=== PATIENT | male | born 1955 | race Caucasian/White ===

== ENCOUNTER 2019-12-26 05:59 | Day surgery (SDC) | payer MEDICARE ==
[2019-12-26 06:30] VITALS: O2SAT 98
[2019-12-26] MEDS ORDERED: Lactated Ringers 1,000 ML IV SCH (06:30)
[2019-12-26] MEDS ORDERED: DIPRIVAN 200 MG/20 ML IV ONE (08:02)
[2019-12-26 08:50] VITALS: PULSE 50
--- NOTE | 2019-12-26 09:08 | OP ---
SURGERY DATE/TIME: 12/26/2019 08 PREOPERATIVE DIAGNOSIS: Left upper quadrant abdominal pain. POSTOPERATIVE DIAGNOSIS: Moderate duodenitis. PROCEDURE: Esophagogastroduodenoscopy with cold forceps biopsy. SURGEON: Dr. Melendez. ANESTHESIA: Medications were given by the anesthesia department. BRIEF HISTORY: The patient is a 64 year old white male patient who has been complaining of left upper quadrant abdominal pain. The patient is not taking any NSAID's although he is also not on any stomach medication. He has aggravation of the symptoms with spicy foods. This patient was described risks of the procedure including the risk of perforation, phlebitis, untoward reaction to medication, bleeding and missed lesions. The patient verbalized his understanding and desired to have the procedure performed. DESCRIPTION OF PROCEDURE: The patient was given the medications by the anesthesia department. He had continuous pulse oximetry, ECG monitoring, intermittent blood pressure monitoring and tidal CO2 monitoring during the examination. He was placed in the left lateral decubitus position. A bite block was placed and the flexible Olympus gastroscope was used to intubate the oropharynx. A view of the larynx was obtained and this was normal. The scope was easily passed in the esophagus which appeared to be normal throughout its length. The scope was passed into the stomach where normal gastric rugal folds were seen and these distended nicely with insufflation of air. The scope was passed along the greater curvature of the stomach to the antrum. The pylorus was encountered and intubated. Duodenum inspected and found to be erythematous throughout. No ulcerations or erosions however were noted. The scope is withdrawn towards the stomach. A retroflex view was obtained of the lesser curvature, fundus and cardia regions of the stomach. There was noted lack of a hiatal hernia. Biopsies were obtained from the gastric antrum to rule out the presence of Helicobacter pylori-type organisms. The scope was then removed from the patient who tolerated the procedure well and was sent back to outpatient recovery in good condition.
[2019-12-26 09:10] VITALS: BP 124/55
== END 2019-12-26 09:15 | disposition home or self-care (01) ==
LOC: SDC 05:59
PROVIDERS: ATTEND Family Medicine
DX: K29.80 Duodenitis without bleeding (principal)
CPT/HCPCS: J2704

== ENCOUNTER 2021-03-05 01:39 | Emergency (ER) | payer MEDICARE ==
[2012-05-06 08:19] VITALS: BP 98/55
--- NOTE | 2021-03-05 02:21 | ERPHSYRPT ---
- History of Present Illness Source: patient Patient Subjective Stated Complaint: "I hit my leg on the table." Triage Nursing Assessment: patient has 3mm laceration to the right lower extremity. Bleeding controlled with quick clot placed by the patient's . No reported blood thinners. Physician History: 65 yo wm w bleeding varicosity R pre-tibial area. Pt bumped his leg on his bed. He is not on a anticoagulant or ASA/plavix. Pt w good hemostasis upon arrival. Method of Injury: direct blow Occurred: just prior to arrival Severity of Pain-Max: mild Severity of Pain-Current: none Lower Extremities Pain: leg: right Modifying Factors: Improves With: nothing Allergies/Adverse Reactions: No Known Drug Allergies Allergy (Verified 03/05/21 01:55) Home Medications: Levothyroxine Sodium 50 mcg PO DAILY 11/02/15 [History] Hx Tetanus, Diphtheria Vaccination/Date Given: Yes Hx Influenza Vaccination/Date Given: Yes Hx Pneumococcal Vaccination/Date Given: Yes Travel Risk - International Travel Have you traveled outside of the country in past 3 weeks: No - Coronavirus Screening Are you exhibiting any of the following symptoms?: No Symptoms: Shortness of Breath - Vaccine Status Have you recieved a Covid-19 vaccination: (unknown) Relations Specialist: Unknown - Vaccination Dates Dates if Unknown: unknown - Review of Systems Constitutional: No Symptoms Eyes: No Symptoms Ears, Nose, & Throat: No Symptoms Respiratory: No Symptoms Cardiac: No Symptoms Abdominal/Gastrointestinal: No Symptoms Genitourinary Symptoms: No Symptoms Skin: No Symptoms Neurological: No Symptoms Psychological: No Symptoms Endocrine: No Symptoms Hematologic/Lymphatic: No Symptoms Immunological/Allergic: No Symptoms - Past Medical History Pertinent Past Medical History: Yes Neurological History: No Pertinent History ENT History: No Pertinent History Cardiac History: No Pertinent History Respiratory History: No Pertinent History Endocrine Medical History: Hyperthyroidism Musculoskeletal History: No Pertinent History GI Medical History: No Pertinent History History: No Pertinent History Psycho-Social History: No Pertinent History Male Reproductive Disorders: No Pertinent History Other Medical History: excema, CA lower lip - Past Surgical History Past Surgical History: No Neuro Surgical History: No Pertinent History Cardiac: No Pertinent History Respiratory: No Pertinent History Gastrointestinal: No Pertinent History Genitourinary: No Pertinent History Musculoskeletal: No Pertinent History, Orthopedic Surgery Male Surgical History: No Pertinent History Other Surgical History: T&A as a child,rt foot, colonoscopy - Social History Smoking Status: Never smoker Exposure to second hand smoke: No Drug Use: none Patient Lives Alone: No Significant Family History: no pertinent family hx - Nursing Vital Signs Nursing Vital Signs: Initial Vital Signs Pulse Rate 79 03/05/21 01:40 Respiratory Rate 16 03/05/21 01:40 Blood Pressure 113/75 03/05/21 01:40 O2 Sat by Pulse Oximetry 98 03/05/21 01:40 Pain Scale Pain Intensity 0 WNL - Physical Exam General Appearance: no apparent distress Eyes, Ears, Nose, Throat Exam: normal ENT inspection, TMs normal, pharynx normal Neck Exam: normal inspection, non-tender, supple Cardiovascular/Respiratory Exam: normal breath sounds, heart sounds normal Gastrointestinal/Abdominal Exam: non-tender, soft Back Exam: normal inspection, normal range of motion Hips Exam: bilateral: non-tender, normal inspection, normal range of motion Legs Exam: right leg: other (R pre-tibial abrasion w good hemostasis), bilateral leg: non-tender, normal inspection, normal range of motion Knees Exam: bilateral knee: non-tender, normal inspection, normal range of motion Ankle Exam: bilateral ankle: non-tender, normal inspection, normal range of motion, no evidence of injury Foot Exam: bilateral foot: non-tender, normal inspection, normal range of motion Neuro/Tendon Exam: normal sensation, normal motor functions, normal tendon functions, responds to pain Mental Status Exam: alert, oriented x 3, cooperative Skin Exam: normal color, warm, dry SpO2 Interpretation: normal SpO2: 98 O2 Delivery: Room Air - Course Nursing assessment & vital signs reviewed: Yes - Progress Progress Note: 03/05/21 02:21 No active bleeding in ER Counseled pt/family regarding: diagnosis, need for follow-up - Departure Departure Disposition: Home Clinical Impression: Bleeding from varicose veins of right lower extremity Condition: Stable Critical Care Time: No Referrals: ZECHARIAH WILDER [Primary Care Provider] - Follow up/PCP as directed Instructions: Wound Care (DC) Additional Instructions: If bleeding restarts, hold pressure for 15 minutes before coming to ER Avoid aspirin/Motrin for 1 day Return to ER for uncontrolled bleeding
== END 2021-03-05 02:34 | disposition home or self-care (01) ==
LOC: ED 01:39
DX: I83.891 Varicose veins of right lower extremity with other complications (principal); W22.8XXA Striking against or struck by other objects, initial encounter; Y92.003 Bedroom of unspecified non-institutional (private) residence as the place of occurrence of the external cause
CPT/HCPCS: 99283

== ENCOUNTER 2021-11-30 10:51 | Day surgery (SDC) | payer MEDICARE ==
[2012-05-06 08:19] VITALS: BP 98/55
[2021-11-30] MEDS ORDERED: Depo-Medrol 40 MG/ML IM ONE (10:52)
[2021-11-30] MEDS ORDERED: Sodium Chloride 0.9(Preservative Free) 10 ML IJ ONE (10:52)
[2021-11-30] MEDS ORDERED: DIPRIVAN 200 MG/20 ML IV ONE (12:11)
[2021-11-30] MEDS ORDERED: Lactated Ringers 1,000 ML IV ONE (12:28)
--- NOTE | 2021-11-30 14:03 | XRAY ---
Indication: Right L4-S1 transforaminal GERARDO. Intraoperative fluoroscopy provided for 22 seconds. 4 digital spot image submitted for interpretation demonstrates posterior needle tips projecting over the expected right L4 and L5 nerve roots. Small amount of contrast injected for needle tip placement. Correlate with intraoperative findings/report.
--- NOTE | 2021-11-30 14:04 | XRAY ---
22 seconds fluoroscopy time in surgery for right L4-S1 transforaminal GERARDO.
== END 2021-11-30 12:35 | disposition home or self-care (01) ==
LOC: SDC-PAIN 10:51
PROVIDERS: ATTEND Psychiatry & Neurology Pain Medicine
DX: M54.16 Radiculopathy, lumbar region (principal); Z79.899 Other long term (current) drug therapy
CPT/HCPCS: 64483; 64484; 72100; 77002; J1030; J2704; Q9966

== ENCOUNTER 2022-01-11 13:42 | Day surgery (SDC) | payer MEDICARE ==
[2012-05-06 08:19] VITALS: BP 98/55
[2022-01-11] MEDS ORDERED: Decadron 4 MG INJ IV ONE (13:43)
[2022-01-11] MEDS ORDERED: Depo-Medrol 40 MG/ML IM ONE (13:43)
[2022-01-11] MEDS ORDERED: Sodium Chloride 0.9(Preservative Free) 10 ML IJ ONE (13:43)
[2022-01-11] MEDS ORDERED: LIDOCAINE HCL 1% 50 MG/5 ML VL PF IJ ONE (13:43)
[2022-01-11] MEDS ORDERED: Lactated Ringers 1,000 ML IV ONE (14:35)
[2022-01-11] MEDS ORDERED: DIPRIVAN 200 MG/20 ML IV ONE (15:20)
--- NOTE | 2022-01-11 18:34 | XRAY ---
50 seconds fluoroscopy time in surgery for right L4-S1 transforaminal GERARDO and injection of the right piriformis muscle.
== END 2022-01-11 15:32 | disposition home or self-care (01) ==
LOC: SDC-PAIN 13:42
PROVIDERS: ATTEND Psychiatry & Neurology Pain Medicine
DX: M54.16 Radiculopathy, lumbar region (principal); M79.18 Myalgia, other site; Z79.899 Other long term (current) drug therapy
CPT/HCPCS: 20552; 64483; 64484; 72100; 77002; 77003; J1030; J1100; J2001; J2704; Q9966

== ENCOUNTER 2022-01-16 06:03 | Day surgery (SDC) | payer MEDICARE ==
[2022-01-16 06:28] VITALS: O2SAT 99
[2022-01-16] MEDS ORDERED: Lactated Ringers 1,000 ML IV SCH (06:30)
[2022-01-16] MEDS ORDERED: DIPRIVAN 200 MG/20 ML IV ONE (07:02)
[2022-01-16 08:14] VITALS: BP 128/84; PULSE 45
--- NOTE | 2022-01-16 12:54 | OP ---
SURGERY DATE/TIME: 01/16/2022 0702 PREOPERATIVE DIAGNOSIS: Screening exam. POSTOPERATIVE DIAGNOSIS: Small sigmoid colon polyp. PROCEDURE: Colonoscopy with cold forceps biopsy. SURGEON: Dr. Quintin Melendez. ANESTHESIA: MAC. Medications given by anesthesia department. HISTORY: The patient is a 66-year-old white male patient who presents for colonoscopic evaluation. The patient was appraised of the risks of the procedure including the risk of perforation, phlebitis, untoward reaction to medication, bleeding and missed lesions. The patient verbalized his understanding and desired to have the procedure performed. DESCRIPTION OF PROCEDURE: The patient was given the medications by the anesthesia department. He had continuous pulse oximetry, ECG monitoring, intermittent blood pressure monitoring during the examination. He was placed in the left lateral decubitus position. A digital rectal examination was performed and revealed normal anal sphincter tone, no masses and normal prostate. The flexible Olympus pediatric colonoscope was used to intubate the rectum. A view of the colon was developed sequentially to the cecum. Upon insertion and withdrawal was noted a small polyp in the sigmoid colon this is biopsied using cold biopsy forceps. No other mucosal lesions were encountered. The scope was removed from the patient who tolerated the procedure well and was sent back to OP recovery in good condition. The prep was noted to be fair to poor.
== END 2022-01-16 08:22 | disposition home or self-care (01) ==
LOC: SDC 06:03
PROVIDERS: ATTEND Family Medicine
DX: Z12.11 Encounter for screening for malignant neoplasm of colon (principal); D12.5 Benign neoplasm of sigmoid colon
CPT/HCPCS: J2704

== ENCOUNTER 2022-03-03 06:27 | Day surgery (SDC) | payer MEDICARE ==
[2022-03-03] MEDS ORDERED: XYLOCAINE 1% HCL 20 ML MDV ONE (06:30)
[2022-03-03] MEDS ORDERED: Marcaine Mpf 0.5% Vial 30 Ml ONE (06:30)
[2022-03-03] MEDS ORDERED: Lactated Ringers 1,000 ML IV SCH (07:30)
[2022-03-03] MEDS ORDERED: Lactated Ringers 1,000 ML IV ONE ×2 (07:32→08:34)
[2022-03-03] MEDS ORDERED: Versed 2 MG/2 ML Injection ONE ×2 (08:16→08:57)
[2022-03-03] MEDS ORDERED: SUBLIMAZE 100 MCG/2 ML ONE ×2 (08:16→09:43)
[2022-03-03] MEDS ORDERED: DIPRIVAN 200 MG/20 ML IV ONE ×3 (08:16→08:59)
[2022-03-03] MEDS ORDERED: KEFZOL 1 GM ONE (08:21)
[2022-03-03] MEDS ORDERED: Kenalog-40 ONE (08:35)
[2022-03-03] MEDS ORDERED: Xylocaine 1% Vial 30 ML PF IJ ONE (08:35)
[2022-03-03] MEDS ORDERED: Epinephrine Preservative Free 1 MG/ML ONE (09:00)
[2022-03-03 09:48] VITALS: O2SAT 95
[2022-03-03 10:14] VITALS: BP 114/78; PULSE 46
[2022-03-03] MEDS ORDERED: Ephedrine Sulfate 50 MG/ML ONE (10:14)
[2022-03-03] MEDS ORDERED: Zofran 4 MG/2 ML VIAL ONE (10:31)
[2022-03-03] MEDS ORDERED: TORAdol 30 mg Injection ONE (10:31)
[2022-03-03] MEDS ORDERED: Zemuron 100 MG/10 ML ONE (10:31)
[2022-03-03] MEDS ORDERED: Decadron 4 MG INJ ONE ×2 (10:31→11:08)
[2022-03-03] MEDS ORDERED: BRIDION 200MG/2ML IV ONE (10:31)
[2022-03-03] MEDS ORDERED: PHENYLEPHRINE HCL ONE (10:32)
[2022-03-03] MEDS ORDERED: Amidate 20 MG/10 ML IV ONE (10:32)
[2022-03-03] MEDS ORDERED: Marcaine 0.5%/Epinephrine 10 ML ONE (11:08)
[2022-03-03] MEDS ORDERED: Xylocaine-Mpf 2% 5 Ml Vial ONE (11:09)
[2022-03-03] MEDS ORDERED: DEXMEDETOMIDINE 80 MCG/20ML-NS IV ONE (11:11)
--- NOTE | 2022-03-03 11:30 | OP ---
SURGERY DATE/TIME: 03/03/2022 0817 PREOPERATIVE DIAGNOSES: 1) Osteomyelitis second toe left foot. 2) Chronic ulceration left foot. 3) Rfjqulk-Oofqs-Exwwu left foot. 4) Equinus. 5) Plantar fasciitis left foot. POSTOPERATIVE DIAGNOSES: 1) Osteomyelitis second toe left foot. 2) Chronic ulceration left foot. 3) Yjsqoho-Pphvc-Lqmet left foot. 4) Equinus. 5) Plantar fasciitis left foot. PROCEDURES: 1) Partial amputation with diaphysectomy of the proximal phalanx second digit left foot. 2) Plantar fascial injection left foot. SURGEON: Eliecer Dyer DPM. MANAGER MENTAL HEALTH: None. ANESTHESIA: Monitored anesthesia care plus a local block preoperatively. ESTIMATED BLOOD LOSS: Less than 3 cc. MATERIALS: 4-0 Monocryl, 3-0 Nylon. INJECTABLES: A total of 8 cc of 1% lidocaine plain, 8 cc of 0.5% bupivacaine plain and 1 cc of Kenalog injected in a digital block to the second digit and in a plantar fascial injection respectively. INDICATION FOR SURGERY: Ricardo is a very pleasant 66-year-old male who is well known to my service for an ulceration to the distal tip of second digit. The patient over the years has had chronic infections to the distal tip of the second digit. The patient does have Jwdnahm-[id number]-Atfwb with significant contractures and recent infection was deemed to have some disruptive changes to the bone at the distal tip of the second digit from the previous visit. The ulceration went down to bone. Discussion with the patient in regards to treatment revealed that the patient would like to deal with this as quickly as possible so that he can proceed with correcting the remaining digits. The option was given to provide six to eight weeks of IV antibiotics, bone debridement at the distal tip of the toe. However, there are no guarantees as to the outcome and we could end up with an amputation of this digit anyway. At this time, the patient opted to proceed electively with a partial amputation of the toe. The patient understands all risks, complications and benefits of the procedure including but not limited to infection, hematoma, seroma, possibility of delayed skin healing, possibility of nonresolution of the issue and possibility of need for further surgery at a later date. He understands all of this and wishes to proceed. DESCRIPTION OF PROCEDURE AND FINDINGS: The patient is brought into the OR and placed and placed on the OR table in the supine position. At this time adequate monitored anesthesia care was administered until the patient was sedated. A preoperative block was performed in aseptic technique to the second digit consisting of 10 cc of a 1:1 mixture of 1% lidocaine plain and 0.5% bupivacaine plain. At this time the left foot was prepped and draped in the typical sterile fashion. At this time a fish mouth incision was made over the base of the proximal phalanx of the second digit. The incision was carried down to the level of bone utilizing a 15 blade. At this time the proximal interphalangeal joint was disarticulated and then a sagittal saw was utilized to remove a portion of the proximal phalanx. At this time, copious amounts of sterile saline were utilized to flush the surgical site. The site was then coapted utilizing 4-0 Monocryl and 3-0 Nylon in a simple buried-type fashion as well as a horizontal mattress-type fashion respectively. At this time, injection was provided to the level of the plantar fascia. The left plantar fascial layer consisting of 3 cc of 1% lidocaine, 3 cc of 0.5% bupivacaine plain and 1 cc of Kenalog. Following this a dressing consisting of Betadine, Adaptic, 4x4, Kerlix and LOS was applied to the left lower extremity. The patient then was reversed from anesthesia and returned to the postoperative anesthesia care unit with vital signs stable and vascular status intact. The patient handled the anesthesia as well as the procedure without significant complication. Postoperative orders as indicated in the patient's discharge chart.
== END 2022-03-03 10:09 | disposition home or self-care (01) ==
LOC: SDC 06:27
PROVIDERS: ATTEND Podiatrist Foot & Ankle Surgery
DX: M86.172 Other acute osteomyelitis, left ankle and foot (principal); L97.529 Non-pressure chronic ulcer of other part of left foot with unspecified severity; G60.0 Hereditary motor and sensory neuropathy; M21.6X2 Other acquired deformities of left foot; M72.2 Plantar fascial fibromatosis
CPT/HCPCS: J0171; J0690; J1100; J1885; J2001; J2250; J2370; J2405; J2704; J3010; J3301

== ENCOUNTER 2023-03-03 17:22 | Emergency (ER) | payer MEDICARE ==
[2023-03-03 18:06] VITALS: TEMP 97.9
[2023-03-03] MEDS ORDERED: MORPHINE SULFATE 4 MG INJ IV ONE (18:07)
--- NOTE | 2023-03-03 18:15 | ERPHSYRPT ---
- History of Present Illness Source: patient Exam Limitations: no limitations Patient Subjective Stated Complaint: pt reports falling off a ladder approx 5ft onto the ground and landing on his back, pt reports mid back pain and painful inspiration, pt denies LOC or any other injuries at this time. Triage Nursing Assessment: pt is aox3, pupils perrl, afebrile, resps easy and non labored, lung sounds are clear, radial pulses strong and equal, cap refill < 3 seconds, pt abd soft non tender, pt skin pink warm dry. pt with 2 long superficial abrasions to his back. Physician History: 67 years old male with no past medical history, presented to the emergency room complaining of mid back pain and pain to both sides of the chest. The patient states that he fell off a 5 feet ladder and landed on dirt on his back. This happened at around 2:30 PM almost 3 hours prior to arrival to the emergency room. He is denying any other injuries no head trauma or loss of consciousness, no neck pain no pain to his upper or lower extremities. The patient is ambulatory. He took couple of ibuprofens without much relief. He is rating his pain at 9 out of 10. The patient states that his back pain and chest pain is worse with deep breaths but he is denying any shortness of breath. No abdominal pain nausea or vomiting. Allergies/Adverse Reactions: No Known Drug Allergies Allergy (Verified 03/03/23 18:06) Home Medications: Levothyroxine Sodium 50 Mcg [Synthroid 50 Mcg] 50 mcg PO DAILY 02/07/22 [History] Pregabalin 75 mg PO BID 03/03/23 [History] Upadacitinib [Rinvoq] 15 mg PO DAILY 03/03/23 [History] Hx Tetanus, Diphtheria Vaccination/Date Given: (unk) Hx Influenza Vaccination/Date Given: No Hx Pneumococcal Vaccination/Date Given: No Immunizations Up to Date: No Travel Risk - International Travel Have you traveled outside of the country in past 3 weeks: No - Coronavirus Screening Are you exhibiting any of the following symptoms?: No Close contact with a COVID-19 positive Pt in past 14-21 Days: No - Vaccine Status Have you recieved a Covid-19 vaccination: Yes (unknown) Comb Setter: Moderna - Vaccination Dates Date of 2cond Vaccination (if applicable): 2020 Dates if Unknown: unknown - Review of Systems Constitutional: No Symptoms Eyes: No Symptoms Ears, Nose, & Throat: No Symptoms Respiratory: No Cough, No Dyspnea Cardiac: No Chest Pain, No Edema, No Syncope Abdominal/Gastrointestinal: No Abdominal Pain, No Nausea, No Vomiting, No Diarrhea Genitourinary Symptoms: No Dysuria Musculoskeletal: Back Pain, Fall, Other (Bilateral chest/rib pain.), No Neck Pain Skin: No Rash Neurological: No Dizziness, No Focal Weakness, No Sensory Changes Psychological: No Symptoms Endocrine: No Symptoms All Other Systems: Reviewed and Negative - Past Medical History Pertinent Past Medical History: Yes Neurological History: No Pertinent History ENT History: No Pertinent History Cardiac History: No Pertinent History Respiratory History: No Pertinent History Endocrine Medical History: Hyperthyroidism Musculoskeletal History: No Pertinent History GI Medical History: No Pertinent History History: No Pertinent History Psycho-Social History: No Pertinent History Male Reproductive Disorders: No Pertinent History Other Medical History: ezcema, CA lower lip,ca left ear - Past Surgical History Past Surgical History: Yes Neuro Surgical History: No Pertinent History Cardiac: No Pertinent History Respiratory: No Pertinent History Gastrointestinal: No Pertinent History Genitourinary: No Pertinent History Musculoskeletal: No Pertinent History, Orthopedic Surgery Male Surgical History: No Pertinent History Other Surgical History: T&A as a child,rt foot, colonoscopy, nose surgery - Social History Smoking Status: Never smoker Exposure to second hand smoke: Yes Drug Use: none Patient Lives Alone: No Significant Family History: no pertinent family hx Physical Exam - Nursing Vital Signs Nursing Vital Signs: Initial Vital Signs Temperature 97.9 F 03/03/23 17:52 Pulse Rate 68 03/03/23 17:52 Respiratory Rate 20 03/03/23 17:52 Blood Pressure 121/70 03/03/23 17:52 O2 Sat by Pulse Oximetry 97 03/03/23 17:52 Pain Scale Pain Intensity 4 - Alexandrea Coma Score Best Eye Response (Alexandrea): (4) open spontaneously Best Verbal Response (Alexandrea): (5) oriented Best Motor Response (Vevay): (6) obeys commands Alexandrea Total: 15 - Physical Exam General Appearance: no apparent distress Head Injury: no evidence of injury ENT Exam: airway nml, nml ext.inspection, No evidence of ENT injury Neck Exam: supple, trachea midline, normal inspection, c-collar in place, No tenderness Respiratory/Chest Exam: chest tenderness, normal breath sounds, rales, other (Bilateral chest wall tenderness), No respiratory distress, No ecchymosis, No crepitus Cardiovascular Exam: normal heart sounds, regular rate/rhythm, normal peripheral pulses, No murmur, No edema, No JVD Gastrointestinal Exam: soft, No tenderness, No distention, No guarding Genitalia Exam: normal genital exam Rectal Exam: deferred Back Exam: normal inspection, normal range of motion, vertebral tenderness, other (Midthoracic and parathoracic tenderness, no bruising swelling or deformities. Tenderness over the right mid posterior ribs) Extremity Exam: normal inspection, normal range of motion, capillary refill <3 sec, pelvis stable, No tenderness Neurologic Exam: alert, oriented x 3, cooperative, lawn caretaker II-XII nml as tested, sensation nml, No motor deficits Skin Exam: normal color, warm, dry SpO2 Interpretation: normal SpO2: 97 - Course Nursing assessment & vital signs reviewed: Yes Ordered Tests: Active Orders 24 hr Category Date Time Status ABDOMEN AND PELVIS W CONTRAST [CT] Stat Exams 03/03/23 18:08 Completed CHEST WITH CONTRAST [CT] Stat Exams 03/03/23 18:08 Completed CBC W DIFF Stat Lab 03/03/23 18:20 Completed CMP Stat Lab 03/03/23 18:20 Completed UA W/RFX UR CULTURE Stat Lab 03/03/23 20:20 Completed Medication Summary Discontinued Medications Generic Name Dose Route Start Last Admin Trade Name Freq PRN Reason Stop Dose Admin Ketorolac Tromethamine 30 mg 03/03/23 20:28 03/03/23 20:33 Ketorolac Tromethamine 30 Mg/Ml Inj IV 03/03/23 20:29 30 mg STAT ONE Administration Ketorolac Tromethamine Confirm 03/03/23 20:30 Ketorolac Tromethamine 30 Mg/Ml Inj Administered 03/03/23 20:31 Dose 30 mg .ROUTE .STK-MED ONE Morphine Sulfate 4 mg 03/03/23 18:07 03/03/23 18:26 Morphine Sulfate 4 Mg/Ml Injection IV 03/03/23 18:08 4 mg STAT ONE Administration Morphine Sulfate Confirm 03/03/23 18:25 Morphine Sulfate 4 Mg/Ml Injection Administered 03/03/23 18:26 Dose 4 mg .ROUTE .STK-MED ONE Orphenadrine Citrate 60 mg 03/03/23 20:28 03/03/23 20:33 Orphenadrine Citrate 60 Mg/2 Ml Vial IV 03/03/23 20:29 60 mg STAT ONE Administration Orphenadrine Citrate Confirm 03/03/23 20:30 Orphenadrine Citrate 60 Mg/2 Ml Vial Administered 03/03/23 20:31 Dose 60 mg .ROUTE .STK-MED ONE Lab/Rad Data: Laboratory Result Diagrams 03/03/23 18:20 03/03/23 18:20 Laboratory Results 03/03/23 03/03/23 03/03/23 Range/Units 20:20 18:20 18:20 WBC 7.4 (4.0-10.5) x10^3/uL RBC 4.35 (4.1-5.6) x10^6/uL Hgb 14.3 (12.5-18.0) g/dL Hct 42.6 (42-50) % MCV 97.9 (78-100) fL MCH 32.9 H (26-32) pg MCHC 33.6 (32-36) g/dL RDW 13.5 (11.5-14.0) % Plt Count 258 (150-450) x10^3/uL MPV 9.5 (7.5-11.0) fL Gran % 81.2 H (36.0-66.0) % Immature Gran % (Auto) 0.3 (0.00-0.4) % Nucleat RBC Rel Count 0.0 (0.00-0.1) % Eos # (Auto) 0.06 (0-0.5) x10^3/uL Immature Gran # (Auto) 0.02 (0.00-0.03) x10^3u/L Absolute Lymphs (auto) 0.59 L (1.0-4.6) x10^3/uL Absolute Monos (auto) 0.68 (0.0-1.3) x10^3/uL Absolute Nucleated RBC 0.00 (0.00-0.01) x10^3u/L Lymphocytes % 8.0 L (24.0-44.0) % Monocytes % 9.3 (0.0-12.0) % Eosinophils % 0.8 (0.00-5.0) % Basophils % 0.4 (0.0-0.4) % Absolute Granulocytes 5.97 (1.4-6.9) x10^3/uL Basophils # 0.03 (0-0.4) x10^3/uL Sodium 136 L (137-145) mmol/L Potassium 4.4 (3.5-5.1) mmol/L Chloride 103 (98-107) mmol/L Carbon Dioxide 23 (22-30) mmol/L Anion Gap 15.2 H (5-15) MEQ/L BUN 18 (9-20) mg/dL Creatinine 1.02 (0.66-1.25) mg/dL Estimated GFR 79.6 ML/MIN Glucose 91 (74-106) mg/dL Calcium 9.7 (8.4-10.2) mg/dL Total Bilirubin 0.70 (0.2-1.3) mg/dL AST 38 (17-59) U/L ALT 32 (0-50) U/L Alkaline Phosphatase 67 (38-126) U/L Serum Total Protein 7.4 (6.3-8.2) g/dL Albumin 4.6 (3.5-5.0) g/dL Urine Color Yellow (Yellow) Urine Appearance Clear (Clear) Urine pH 7.0 (4.6-8.0) Ur Specific Hilton 1.025 (1.005-1.030) Urine Protein Negative (Negative) Urine Glucose (UA) Negative (Negative) mg/dL Urine Ketones Trace A (Negative) Urine Blood Negative (Negative) Urine Nitrite Negative (Negative) Urine Bilirubin Negative (Negative) Urine Urobilinogen 0.2 (0.2) mg/dL Ur Leukocyte Esterase Negative (Negative) U Hyaline Cast (Auto) NONE SEEN (0-2) /LPF Urine Microscopic RBC 0-2 (0-5) /HPF Urine Microscopic WBC 0-2 (0-5) /HPF Ur Epithelial Cells None Seen (None Seen) /HPF Urine Bacteria None Seen (None Seen) /HPF Urine Culture Reflexed NO (NO) Slides for Path Review YES - Progress Progress: improved Progress Note: 03/03/23 18:13 67 years old male with no past medical history, presented to the emergency room complaining of mid back pain and pain to both sides of the chest. The patient states that he fell off a 5 feet ladder and landed on dirt on his back. This happened at around 2:30 PM almost 3 hours prior to arrival to the emergency room. He is denying any other injuries no head trauma or loss of consciousness, no neck pain no pain to his upper or lower extremities. The patient is ambulatory. He took couple of ibuprofens without much relief. He is rating his pain at 9 out of 10. The patient states that his back pain and chest pain is worse with deep breaths but he is denying any shortness of breath. No abdominal pain nausea or vomiting. Emergency room course and medical decision making. The patient is rating his pain as severe, 9 out of 10. He will be given morphine sulfate 4 mg IV. We will check CBC, CMP, UA, CT scan of the chest abdomen and pelvis. 03/03/23 20:30 The patient is feeling slightly better after the IV morphine. His CT scan of the chest revealed no pneumothorax no definite evidence of acute fracture. Small osteolytic lesion of T11 vertebral body, and a focal sclerotic left fifth rib for eval evaluation recommended. CT scan of the abdomen revealed 1.3 cm hypodense nodule segment of the left lower lobe consider cyst versus hemangioma. Renal cortical cysts. No acute osseous finding. The patient will be given Toradol 30 mg IV, Norflex 60 mg IV for the pain. 03/03/23 21:52 The patient is feeling better stating that his pain is down to 4 out of 10. He be discharged home accompanied by his . For the pain he will be prescribed ibuprofen 800 mg 3 times a day as needed, cyclobenzaprine 10 mg 3 times a day as needed. He needs to rest, avoid any strenuous activities. Follow-up with his family physician in 2 to 3 days. Follow-up as needed for any worsening symptoms. Medical Desision Making - Discussion of managment Reviewed:: Test results - Departure Clinical Impression: Back pain due to injury, Contusion of ribs Condition: Stable Critical Care Time: No Referrals: ZECHARIAH WILDER [Primary Care Provider] - Follow up/PCP as directed Instructions: Contusion (DC), Upper Back Pain ED Additional Instructions: Follow-up with your family physician in 2 to 3 days. Follow-up as needed for any worsening symptoms. Prescriptions: Cyclobenzaprine HCl 10 mg [Cyclobenzaprine 10 MG] 10 mg PO TID PRN #10 tablet PRN Reason: Back pain, muscle pain, Naproxen 500 mg [Naprosyn 500 MG] 500 mg PO BID #20 tablet
[2023-03-03] MEDS ORDERED: MORPHINE SULFATE 4 MG INJ ONE (18:25)
[2023-03-03 18:29] LABS: Absolute Neutrophil Ct (ANC) 5.97 x10^3/uL (1.4-6.9); BASOPHIL % 0.4 % (0.0-0.4); Basophil (Absolute #) 0.03 x10^3/uL (0-0.4); Eosinophil % 0.8 % (0.00-5.0); Eosinophil (Absolute #) 0.06 x10^3/uL (0-0.5); Hematocrit 42.6 % (42-50); Hemoglobin 14.3 g/dL (12.5-18.0); IMMATURE GRAN # 0.02 x10^3u/L (0.00-0.03); IMMATURE GRAN % 0.3 % (0.00-0.4); Lymphocyte (Absolute #) 0.59 x10^3/uL (1.0-4.6); Mean Cell Volume 97.9 fL (78-100); Mean Corpuscular Hemoglobin 32.9 pg (26-32); Mean Corpuscular Hgb Concent. 33.6 g/dL (32-36); Mean Platelet Volume 9.5 fL (7.5-11.0); Monocyte (Absolute #) 0.68 x10^3/uL (0.0-1.3); Monocytes % 9.3 % (0.0-12.0); Neutrophil % 81.2 % (36.0-66.0); Platelet Count 258 x10^3/uL (150-450); Red Blood Count 4.35 x10^6/uL (4.1-5.6); Red Cell Distribution Width 13.5 % (11.5-14.0); White Blood Count 7.4 x10^3/uL (4.0-10.5)
[2023-03-03 18:44] LABS: ALBUMIN 4.6 g/dL (3.5-5.0); ANION GAP 15.2 MEQ/L (5-15); BILIRUBIN,TOTAL 0.7 mg/dL (0.2-1.3); Calcium 9.7 mg/dL (8.4-10.2); Creatinine 1 1.02 mg/dL (0.66-1.25); EST GLOMERULAR FILTRATION RATE 79.6 ML/MIN; Potassium 4.4 mmol/L (3.5-5.1); Total Protein 7.4 g/dL (6.3-8.2)
--- NOTE | 2023-03-03 19:54 | XRAY ---
CLINICAL HISTORY:Trauma COMPARISON:None. TECHNIQUE:Contiguous axial CT images of the chest were acquired with the administration of intravenous contrast. Coronal and sagittal reconstructions were obtained. FINDINGS: Subpleural reticular and ground-glass opacities are seen in both lungs, predominantly in both lower lobes. These could represent interstitial lung disease or sequala of previous inflammatory process. There are small calcified nodules, likely granulomas, at the posterior segment of the right upper lobe. No free or encysted pleural effusion. Heart size is normal, and there is no pericardial effusion. There is atherosclerosis of the aorta and some coronary arteries. No pathologically enlarged mediastinal, hilar, or axillary lymph node identified. There is no definite mass lesion in the chest wall. Degenerative osseous changes are seen in the thoracic spine. There are mild anterior compression deformities of the mid-thoracic vertebral bodies. A small osteolytic lesion is seen at the T11 vertebral body. There is focal sclerosis at the left 5th rib. There is a 1.5 cm cyst at the visualized liver. A hyperdense exophytic nodule measuring 8.4 mm is seen at the mid-cortex of the right kidney. IMPRESSION: 1. No pneumothorax. 2. No definite evidence of acute fracture. 3. Subpleural reticular and ground-glass opacities in both lungs, predominantly in both lower lobes. These could represent interstitial lung disease or sequalae of previous inflammatory process. Clinical correlation is suggested. 4. Small calcified nodules, likely granulomas, at the posterior segment of the right upper lobe. 5. A small osteolytic lesion at T11 vertebral body and a focal sclerosis at left 5th rib. Further evaluation is suggested if clinically warranted. Electronically Signed by: Zoey Vázquez MD. (03/03/2023 18:53:32 BRUSH POL[employer]ER)
--- NOTE | 2023-03-03 19:58 | XRAY ---
CLINICAL HISTORY:Trauma COMPARISON:None. TECHNIQUE:A CT scan of the abdomen and pelvis was performed with IV contrast. Coronal and sagittal reconstructive images were also obtained. FINDINGS: Abdomen: The liver is normal in size measuring 14.1 cm craniocaudally. There is a 1.3 cm hypodense nodule at segment IVB of the left liver lobe. The portal vein, intrahepatic biliary radicals, and the bile ducts are normal. The spleen, pancreas, and adrenal glands are unremarkable. The kidneys are normal in size and shape. A hyperdense exophytic nodule measuring 8.4 mm is seen at the mid-cortex of the right kidney. There is a 7.1 mm simple cortical cyst at the left inferior cortex. No mass, calculi, or hydronephrosis. The gallbladder is distended and shows no definite stones. There is no evidence of wall thickening/ pericholecystic collection. The ascending colon, the transverse colon, and the descending colon. There is prominence of the duodenum with a maximum diameter of 3.0 cm and with mild wall thickening. There is no evidence of significant enlargement of the mesenteric or retroperitoneal lymph nodes. Atherosclerotic aorta and some of its branches. Bilateral small fat-filled inguinal hernias are noted. Pelvis: The urinary bladder is unremarkable. The prostate gland is slightly enlarged measuring 3.4 x 5.5 x 3.6 cm (approx. 35 g). The pelvic vasculature is unremarkable. No evidence of pelvic lymphadenopathy. Degenerative osseous changes are seen. No definite evidence of acute fractures. IMPRESSION: 1. A 1.3 cm hypodense nodule at segment IVB of the left liver lobe. Consider cyst versus hemangioma. 2. Renal cortical cysts, bilateral. Bosniak 2 in the right and Bosniak 1 in the left. 3. Prominent duodenum with a maximum diameter of 3.0 cm and with mild wall thickening. Consider inflammatory or infectious etiology. Follow-up is suggested. 4. Mild prostatomegaly. 5. No acute osseous findings 6. Rest of the findings as detailed above Electronically Signed by: Zoey Vázquez MD. (03/03/2023 18:56:56 CONCRETE TECHNICIAN)
[2023-03-03 20:18] VITALS: RESP 17; O2SAT 97
[2023-03-03 20:28] LABS: Appearance Clear (Clear); Bacteria None Seen /HPF (None Seen); Bilirubin Negative (Negative); Blood Negative (Negative); Epithelial Cells None Seen /HPF (None Seen); Glucose, Urine Negative (Negative); Hyaline Casts NONE SEEN /LPF (0-2); Ketones Trace (Negative); Leukocyte Esterase Negative (Negative); Nitrite Negative (Negative); Protein,Urine Dip Negative (Negative); RBC 0-2 /HPF (0-5); Specific Gravity 1.025 (1.005-1.030); Urobilinogen 0.2 mg/dL (0.2); WBC 0-2 /HPF (0-5)
[2023-03-03] MEDS ORDERED: TORAdol 30 mg Injection IV ONE (20:28)
[2023-03-03] MEDS ORDERED: Norflex 60 MG/2 ML IV ONE (20:28)
[2023-03-03 20:30] LABS: ADD URINE CULTURE? NO (NO)
[2023-03-03] MEDS ORDERED: Norflex 60 MG/2 ML ONE (20:30)
[2023-03-03] MEDS ORDERED: TORAdol 30 mg Injection ONE (20:30)
[2023-03-03 21:44] LABS: Slide Review 1 YES
[2023-03-03 22:05] VITALS: BP 110/67; PULSE 48
== END 2023-03-03 22:11 | disposition home or self-care (01) ==
LOC: ED 17:22
DX: S20.213A Contusion of bilateral front wall of thorax, initial encounter (principal); W11.XXXA Fall on and from ladder, initial encounter; R07.9 Chest pain, unspecified; M54.6 Pain in thoracic spine; Z79.899 Other long term (current) drug therapy
CPT/HCPCS: 36000; 36415; 71260; 74177; 80053; 81001; 85025; 96374; 96375; 99284; J1885; J2270; J2360

== ENCOUNTER 2023-04-12 07:19 | Day surgery (SDC) | payer MEDICARE ==
[2012-05-06 08:19] VITALS: BP 98/55
[2023-04-12] MEDS ORDERED: Depo-Medrol 40 MG/ML IM ONE (07:20)
[2023-04-12] MEDS ORDERED: BUPIVACAINE 0.5% VIAL IJ ONE (07:20)
[2023-04-12] MEDS ORDERED: DIPRIVAN 200 MG/20 ML IV ONE (08:57)
--- NOTE | 2023-04-12 09:29 | XRAY ---
Indication: Left intercostal nerve block. Intraoperative fluoroscopy provided for 9 seconds. 2 digital spot image submitted for interpretation demonstrates needle tip projecting lateral to a inferior left rib. Correlate with intraoperative findings/report.
--- NOTE | 2023-04-12 10:25 | XRAY ---
9 seconds of fluoroscopy was used in surgery for a left intercostal nerve block.
[2023-04-12] MEDS ORDERED: Lactated Ringers 1,000 ML IV ONE (16:11)
== END 2023-04-12 09:30 | disposition home or self-care (01) ==
LOC: SDC-PAIN 07:19
PROVIDERS: ATTEND Psychiatry & Neurology Pain Medicine
DX: R07.81 Pleurodynia (principal); Z79.899 Other long term (current) drug therapy
CPT/HCPCS: 64420; 64421; 71100; 77002; J1030; J2704

== ENCOUNTER 2023-06-02 08:40 | Emergency (ER) | payer MEDICARE ==
--- NOTE | 2023-06-02 08:52 | ERPHSYRPT ---
- History of Present Illness Time Seen by Provider: 06/02/23 08:43 Source: patient, family, EMS Exam Limitations: no limitations Physician History: pt had knee surgery 2 days ago, got up to take shower and passed out on couch suddenly then awakened short of breath. No Hx of CAD or previous PE. has some headache but did not hit head. No trauma was on couch when had syncope No blood thinners. Denies COPD but states sometimes had had minor SObreath. Nonsmoker. No abd pain, No BRBPR. Discussed risks/benefits of testing with CT PE protocol, CBC, CMP, UA, Lactate, swab for COvid, RSV, Flu, Trop, EKG BNP, Tx IVF with pt and family and they wishe to proceed. THese are ordered results discussed with pt and family . EMS serves in ER to collaborate the HX as independent source. Witnessed: by family Prior Episodes: single episode today, no prior history Timing/Duration: today, resolved prior to arrival, sudden Precipitating Factors: none Context: sitting Loss of Consciousness: brief (seconds) Charcter of event(s): became unresponsive Allergies/Adverse Reactions: ketorolac [From Toradol] Allergy (Verified 06/02/23 08:50) Home Medications: Levothyroxine Sodium 50 Mcg [Synthroid 50 Mcg] 50 mcg PO DAILY 02/07/22 [ History] Pregabalin 75 mg PO DAILY 03/03/23 [History] Upadacitinib [Rinvoq] 15 mg PO DAILY 03/03/23 [History] Hx Tetanus, Diphtheria Vaccination/Date Given: (unk) Hx Influenza Vaccination/Date Given: No Hx Pneumococcal Vaccination/Date Given: No Travel Risk - Vaccine Status Have you recieved a Covid-19 vaccination: Yes (unknown) Safety Inspector: Moderna - Vaccination Dates Date of 2cond Vaccination (if applicable): 2020 Dates if Unknown: unknown - Past Medical History Pertinent Past Medical History: Yes Neurological History: No Pertinent History ENT History: No Pertinent History Cardiac History: No Pertinent History Respiratory History: No Pertinent History Endocrine Medical History: Hyperthyroidism Musculoskeletal History: No Pertinent History GI Medical History: No Pertinent History History: No Pertinent History Psycho-Social History: No Pertinent History Male Reproductive Disorders: No Pertinent History Other Medical History: ezcema, CA lower lip,ca left ear - Past Surgical History Past Surgical History: Yes Neuro Surgical History: No Pertinent History Cardiac: No Pertinent History Respiratory: No Pertinent History Gastrointestinal: No Pertinent History Genitourinary: No Pertinent History Musculoskeletal: No Pertinent History, Orthopedic Surgery Male Surgical History: No Pertinent History Other Surgical History: T&A as a child,rt foot, colonoscopy, nose surgery - Social History Smoking Status: Never smoker Exposure to second hand smoke: Yes Drug Use: none Patient Lives Alone: No Significant Family History: no pertinent family hx - Review of Systems Constitutional: No Fever, No Chills Eyes: No Symptoms Ears, Nose, & Throat: No Symptoms Respiratory: Dyspnea, No Cough Cardiac: No Chest Pain, No Edema, No Syncope Abdominal/Gastrointestinal: No Abdominal Pain, No Nausea, No Vomiting, No Diarrhea Genitourinary Symptoms: No Dysuria Musculoskeletal: No Back Pain, No Neck Pain Skin: No Rash Neurological: No Dizziness, No Focal Weakness, No Sensory Changes Psychological: No Symptoms Endocrine: No Symptoms Hematologic/Lymphatic: No Symptoms Immunological/Allergic: No Symptoms All Other Systems: Reviewed and Negative Physical Exam - Nursing Vital Signs Nursing Vital Signs: Initial Vital Signs Pulse Rate 68 06/02/23 08:39 Respiratory Rate 17 06/02/23 08:39 Blood Pressure 109/74 06/02/23 08:39 O2 Sat by Pulse Oximetry 97 06/02/23 08:39 Pain Scale Pain Intensity 0 - [place] Coma Scale Best Eye Response (Alexandrea): (4) open spontaneously Best Verbal Response ([place]): (5) oriented Best Motor Response ([place]): (6) obeys commands Alexandrea Total: 15 - Physical Exam General Appearance: no apparent distress, alert Eye Exam: bilateral eye: PERRL, EOMI Ears, Nose, Throat Exam: normal ENT inspection, pharynx normal, moist mucous membranes Neck Exam: normal inspection, non-tender, supple, full range of motion Respiratory: normal breath sounds, lungs clear, No chest tenderness, No respiratory distress Cardiovascular: regular rate/rhythm, capillary refill <2 sec, No murmur, No pulse deficit Gastrointestinal: soft, No tenderness, No distention, No mass Rectal Exam: deferred Back Exam: normal inspection, normal range of motion, No CVA tenderness, No vertebral tenderness Extremity Exam: normal inspection, normal range of motion, pelvis stable, No tenderness Peripheral Pulses: carotid (R): 2+, carotid (L): 2+, femoral (R): 2+, femoral (L): 2+, dorsalis-pedis (R): 2+, dorsalis-pedis (L): 2+ Mental Status: alert, oriented x 3, cooperative wired sweatband cutter Exam: normal speech, PERRL, No facial droop Coordination/Gait: normal finger to nose Motor/Sensory: no motor deficit, no sensory deficit, no pronator drift DTR: bicep (R): 2+, bicep (L): 2+, tricep (R): 2+, tricep (L): 2+, knee (R): 2+, knee (L): 2+, ankle (R): 2+, ankle (L): 2+ Skin Exam: normal color, warm, dry, No rash SpO2 Interpretation: borderline oxygenation SpO2: 93 O2 Delivery: Room Air - Course Nursing assessment & vital signs reviewed: Yes EKG Interpreted by Me: Sinus Rhythm, Non-specific ST Changes, Other (IVCL) - CT Exams Chest CT Interpretation: Tele-radiologist Report, Other (multifocal PE) Ordered Tests: Active Orders 24 hr Category Date Time Status EKG-ER Only STAT Care 06/02/23 08:56 Active CHEST WITH CONTRAST [CT] Stat Exams 06/02/23 08:56 Completed CBC W DIFF Stat Lab 06/02/23 10:00 Completed CMP Stat Lab 06/02/23 10:00 Completed Lactic Acid Stat Lab 06/02/23 10:03 Completed Lactic Acid Stat Lab 06/02/23 12:13 Received NT PRO BNPII Stat Lab 06/02/23 10:00 Completed TROPONIN Q4H Lab 06/02/23 10:00 Completed TROPONIN Q4H Lab 06/02/23 13:00 Ordered TROPONIN Q4H Lab 06/02/23 17:00 Ordered Medication Summary Discontinued Medications Generic Name Dose Route Start Last Admin Trade Name Freq PRN Reason Stop Dose Admin Enoxaparin Sodium 104 mg 06/02/23 12:08 06/02/23 12:12 Enoxaparin Sodium 120 Mg/0.8 Ml Syringe SQ 06/02/23 12:09 104 mg STAT STA Administration Enoxaparin Sodium Confirm 06/02/23 12:09 Enoxaparin Sodium 120 Mg/0.8 Ml Syringe Administered 06/02/23 12:10 Dose 120 mg SQ .STK-MED ONE Sodium Chloride 1,000 mls @ 999 mls/hr 06/02/23 08:56 06/02/23 10:28 Sodium Chloride 0.9% 1000 Ml IV 06/02/23 09:56 Infused .Q1H1M STA Infusion Sodium Chloride Confirm 06/02/23 08:59 Sodium Chloride 0.9% 1000 Ml Administered 06/02/23 09:00 Dose 1,000 mls @ ud .ROUTE .STK-MED ONE Lab/Rad Data: Laboratory Result Diagrams 06/02/23 10:00 06/02/23 10:00 Laboratory Results 06/02/23 06/02/23 06/02/23 Range/Units 10:03 10:00 10:00 WBC (4.0-10.5) x10^3/uL RBC (4.1-5.6) x10^6/uL Hgb (12.5-18.0) g/dL Hct (42-50) % MCV (78-100) fL MCH (26-32) pg MCHC (32-36) g/dL RDW (11.5-14.0) % Plt Count (150-450) x10^3/uL MPV (7.5-11.0) fL Gran % (36.0-66.0) % Immature Gran % (Auto) (0.00-0.4) % Nucleat RBC Rel Count (0.00-0.1) % Eos # (Auto) (0-0.5) x10^3/uL Immature Gran # (Auto) (0.00-0.03) x10^3u/L Absolute Lymphs (auto) (1.0-4.6) x10^3/uL Absolute Monos (auto) (0.0-1.3) x10^3/uL Absolute Nucleated RBC (0.00-0.01) x10^3u/L Lymphocytes % (24.0-44.0) % Monocytes % (0.0-12.0) % Eosinophils % (0.00-5.0) % Basophils % (0.0-0.4) % Absolute Granulocytes (1.4-6.9) x10^3/uL Basophils # (0-0.4) x10^3/uL Sodium (137-145) mmol/L Potassium (3.5-5.1) mmol/L Chloride (98-107) mmol/L Carbon Dioxide (22-30) mmol/L Anion Gap (5-15) MEQ/L BUN (9-20) mg/dL Creatinine (0.66-1.25) mg/dL Estimated GFR ML/MIN Glucose (74-106) mg/dL Lactic Acid 1.9 (0.4-2.0) Calcium (8.4-10.2) mg/dL Total Bilirubin (0.2-1.3) mg/dL AST (17-59) U/L ALT (0-50) U/L Alkaline Phosphatase (38-126) U/L Troponin I 0.116 H* (0.000-0.034) ng/mL NT-Pro-B Natriuret Pep 167 (<300) pg/mL Serum Total Protein (6.3-8.2) g/dL Albumin (3.5-5.0) g/dL Influenza Type A Ag NEGATIVE (NEGATIVE) Influenza Type B Ag NEGATIVE (NEGATIVE) RSV (PCR) NEGATIVE (NEGATIVE) SARS-CoV-2 (PCR) NEGATIVE (NEGATIVE) 06/02/23 06/02/23 Range/Units 10:00 10:00 WBC 7.4 (4.0-10.5) x10^3/uL RBC 4.29 (4.1-5.6) x10^6/uL Hgb 13.7 (12.5-18.0) g/dL Hct 41.7 L (42-50) % MCV 97.2 (78-100) fL MCH 31.9 (26-32) pg MCHC 32.9 (32-36) g/dL RDW 14.0 (11.5-14.0) % Plt Count 188 (150-450) x10^3/uL MPV 8.9 (7.5-11.0) fL Gran % 80.8 H (36.0-66.0) % Immature Gran % (Auto) 0.3 (0.00-0.4) % Nucleat RBC Rel Count 0.0 (0.00-0.1) % Eos # (Auto) 0.05 (0-0.5) x10^3/uL Immature Gran # (Auto) 0.02 (0.00-0.03) x10^3u/L Absolute Lymphs (auto) 0.85 L (1.0-4.6) x10^3/uL Absolute Monos (auto) 0.48 (0.0-1.3) x10^3/uL Absolute Nucleated RBC 0.00 (0.00-0.01) x10^3u/L Lymphocytes % 11.4 L (24.0-44.0) % Monocytes % 6.5 (0.0-12.0) % Eosinophils % 0.7 (0.00-5.0) % Basophils % 0.3 (0.0-0.4) % Absolute Granulocytes 6.01 (1.4-6.9) x10^3/uL Basophils # 0.02 (0-0.4) x10^3/uL Sodium 137 (137-145) mmol/L Potassium 4.0 (3.5-5.1) mmol/L Chloride 106 (98-107) mmol/L Carbon Dioxide 26 (22-30) mmol/L Anion Gap 9.1 (5-15) MEQ/L BUN 16 (9-20) mg/dL Creatinine 0.85 (0.66-1.25) mg/dL Estimated GFR 94.1 ML/MIN Glucose 112 H (74-106) mg/dL Lactic Acid (0.4-2.0) Calcium 9.0 (8.4-10.2) mg/dL Total Bilirubin 0.70 (0.2-1.3) mg/dL AST 26 (17-59) U/L ALT 29 (0-50) U/L Alkaline Phosphatase 61 (38-126) U/L Troponin I (0.000-0.034) ng/mL NT-Pro-B Natriuret Pep (<300) pg/mL Serum Total Protein 6.4 (6.3-8.2) g/dL Albumin 3.9 (3.5-5.0) g/dL Influenza Type A Ag (NEGATIVE) Influenza Type B Ag (NEGATIVE) RSV (PCR) (NEGATIVE) SARS-CoV-2 (PCR) (NEGATIVE) - Progress Progress: improved, re-examined Progress Note: 06/02/23 12:19 consulted and discussed with Dr. Americo hill ( roller inspector and mender) due to elevated troponin) and Dr. Cleaning the hospitalist and they agree best to transfer pt to [facility] for definitive care of his PEs, and advise anticoag loading with Lovenox 1 mg/kg which is ordered after discussion of risks/benefits with and pt. Discussed with Dr.: Other (Dr. Cleaning and Dr. Noemi Hill) Will see patient in: hospital (full admit) Counseled pt/family regarding: lab results, diagnosis, need for follow-up, rad results Medical Desision Making - Independent Historian Additional History obtained from: Spouse, EMS - Discussion of managment Care discussed with:: specialist Reviewed:: Test results, Need for additional workup Agreed on:: Treatment plan, need for follow-up, decision to admit Will see patient: in hospital - Diagnostic Testing Diagnostic test were ordered, analyzed, and reviewed by me: Yes Radiological Interpretation: Reviewed by me, Teleradiologist Report - Risk of complications The pt has a mod risk of morbidity or mortality based on: Need for prescription drug management The pt has a high risk of morbidity or mortality based on: Decision regarding hospitilization or escalation of hosp level of care - Departure Departure Disposition: Transfer Clinical Impression: multifocal PEs Condition: Good Critical Care Time: No Referrals: ZECHARIAH WILDER [Primary Care Provider] - Follow up/PCP as directed
[2023-06-02] MEDS ORDERED: Sodium Chloride 0.9% 1000 ML 1,000 ML IV STA (08:56)
[2023-06-02] MEDS ORDERED: Sodium Chloride 0.9% 1000 ML 1,000 ML ONE (08:59)
[2023-06-02 10:05] LABS: Absolute Neutrophil Ct (ANC) 6.01 x10^3/uL (1.4-6.9); BASOPHIL % 0.3 % (0.0-0.4); Basophil (Absolute #) 0.02 x10^3/uL (0-0.4); Eosinophil % 0.7 % (0.00-5.0); Eosinophil (Absolute #) 0.05 x10^3/uL (0-0.5); Hematocrit 41.7 % (42-50); Hemoglobin 13.7 g/dL (12.5-18.0); IMMATURE GRAN # 0.02 x10^3u/L (0.00-0.03); IMMATURE GRAN % 0.3 % (0.00-0.4); Lymphocyte (Absolute #) 0.85 x10^3/uL (1.0-4.6); Lymphocytes % 11.4 % (24.0-44.0); Mean Cell Volume 97.2 fL (78-100); Mean Corpuscular Hemoglobin 31.9 pg (26-32); Mean Corpuscular Hgb Concent. 32.9 g/dL (32-36); Mean Platelet Volume 8.9 fL (7.5-11.0); Monocyte (Absolute #) 0.48 x10^3/uL (0.0-1.3); Monocytes % 6.5 % (0.0-12.0); Neutrophil % 80.8 % (36.0-66.0); Platelet Count 188 x10^3/uL (150-450); Red Blood Count 4.29 x10^6/uL (4.1-5.6); White Blood Count 7.4 x10^3/uL (4.0-10.5)
[2023-06-02 10:20] LABS: ALBUMIN 3.9 g/dL (3.5-5.0); ANION GAP 9.1 MEQ/L (5-15); BILIRUBIN,TOTAL 0.7 mg/dL (0.2-1.3); Creatinine 1 0.85 mg/dL (0.66-1.25); EST GLOMERULAR FILTRATION RATE 94.1 ML/MIN; Total Protein 6.4 g/dL (6.3-8.2)
--- NOTE | 2023-06-02 10:22 | XRAY ---
CLINICAL HISTORY: syncopal episode followed by [facility] TECHNIQUE: Contiguous axial CT images of the chest were acquired with the administration of intravenous contrast. Coronal and sagittal reconstructions were obtained. COMPARISON: CT 03/03/2023. FINDINGS: Complete filling defect/non-opacification / thrombus is seen in the left upper lobe segmental and sub-segmental branches and incomplete/partial filling defects in left lower lobe segmental branches and a small area of filling defect in the left main branch as well with extension into left upper lobe branches. Non-opacification with thrombus is seen in the right lower lobe segmental and subsegmental branches and a few subsegmental branches are not opacified in the right upper lobe as well. Findings representing multifocal pulmonary embolism in both lungs. Again, subpleural reticular and ground-glass opacities are seen in both lungs, predominantly in both lower lobes. These could represent interstitial lung disease or sequala of previous inflammatory processes. There are small calcified nodules, likely granulomas, at the posterior segment of the right upper lobe. The rest of the scanned pulmonary parenchyma shows no definite consolidative lesions. No free or encysted pleural effusion. Heart size is normal, and there is no pericardial effusion. No pathologically enlarged mediastinal, hilar, or axillary lymph node was identified. There is no definite mass lesion in the chest wall. The scanned upper abdomen shows a 1.3 cm fluid density non-enhancing nodule at segment IVB of the liver. Degenerative changes are seen in the spine. IMPRESSION: 1. Findings representing multifocal pulmonary embolisms in both lungs as described above. 2. Compared with the previous examination , rest of the findings remain unchanged. [facility] was called at at 09:12 AM TRAIN ELECTRONIC TECHNICIAN on 06/02/2023 and results were verbally communicated to Michelle. Electronically Signed by: Zoey Vázquez MD. (06/02/2023 10:17:38 EST)
[2023-06-02 10:50] LABS: INFLUENZA A NEGATIVE (NEGATIVE); INFLUENZA B NEGATIVE (NEGATIVE); RESPIRATORY SYNCTIAL VIRUS NEGATIVE (NEGATIVE); SARS-CoV-2 Xpert Express NEGATIVE (NEGATIVE)
[2023-06-02 10:52] LABS: TROPONIN 0.116 ng/mL (0.000-0.034)
[2023-06-02] MEDS ORDERED: ENOXAPARIN SODIUM SQ STA (12:08)
[2023-06-02] MEDS ORDERED: ENOXAPARIN SODIUM SQ ONE (12:09)
[2023-06-02 13:31] VITALS: TEMP 97
[2023-06-02 14:10] VITALS: BP 135/91; PULSE 79; RESP 15; O2SAT 97
== END 2023-06-02 15:33 | disposition short-term general hospital (02) ==
LOC: ED 08:40
DX: I26.94 Multiple subsegmental thrombotic pulmonary emboli without acute cor pulmonale (principal); I26.99 Other pulmonary embolism without acute cor pulmonale; I21.4 Non-ST elevation (NSTEMI) myocardial infarction; R55 Syncope and collapse; R51.9 Headache, unspecified; Z79.899 Other long term (current) drug therapy; Z20.828 Contact with and (suspected) exposure to other viral communicable diseases
CPT/HCPCS: 0241U; 36000; 36415; 71260; 80053; 83605; 83880; 84484; 85025; 93005; 96360; 96372; 99285; J1650

== ENCOUNTER 2023-06-23 21:12 | Emergency (ER) | payer MEDICARE ==
--- NOTE | 2023-06-23 21:19 | ERPHSYRPT ---
- History of Present Illness Time Seen by Provider: 06/23/23 21:18 Source: patient, family Exam Limitations: no limitations Physician History: This is a 67-year-old white male patient of Dr. Wilder who approximately 3 weeks ago was complaining of shortness of breath and underwent a CT scan of the chest with contrast and found that had bilateral multifocal pulmonary emboli. Patient was ultimately placed on Xarelto. He has been taking this medication. Patient does not have chest pain. However in the last few days his shortness of breath is more significant especially when laying down. He feels very anxious because he feels as though he cannot breathe. Patient does not see a paperhanger assistant. He does see Dr. Noemi Schmid (younger) for cardiology. I reviewed the results of the CT scan dated 06/02/2023 as well as the twelve-lead EKG that was performed on the same date. Patient had a heart rate of 72 bpm and is normal sinus rhythm. There was normal axis deviation, normal intervals and normal QRS without evidence of acute ischemic changes. The patient was, on 06/02/2023, transferred to [facility] for further evaluation management. Timing/Duration: day(s) (Last few days), worse Severity of Dyspnea-Max: moderate Severity of Dyspnea-Current: moderate Possible Cause: no prior episodes Modifying Factors: Improves With: lying down Associated Symptoms: anxiety, insomnia, No chest pain/discomfort Allergies/Adverse Reactions: ketorolac [From Toradol] Allergy (Verified 06/23/23 21:14) Home Medications: Levothyroxine Sodium 50 Mcg [Synthroid 50 Mcg] 50 mcg PO DAILY 02/07/22 [History] Upadacitinib [Rinvoq] 15 mg PO DAILY 03/03/23 [History] Buspirone HCl 5 mg [Buspar 5 mg] 10 mg PO BID 06/23/23 [History] Omeprazole 1 cap PO DAILY 06/23/23 [History] Rivaroxaban [Xarelto] 1 tab PO BID 06/23/23 [History] Hx Tetanus, Diphtheria Vaccination/Date Given: (unk) Hx Influenza Vaccination/Date Given: No Hx Pneumococcal Vaccination/Date Given: No Travel Risk - International Travel Have you traveled outside of the country in past 3 weeks: No - Coronavirus Screening Are you exhibiting any of the following symptoms?: Yes Symptoms: Shortness of Breath Close contact with a COVID-19 positive Pt in past 14-21 Days: No - Vaccine Status Have you recieved a Covid-19 vaccination: Yes (unknown) Ged Teacher: Moderna - Vaccination Dates Date of 2cond Vaccination (if applicable): 2020 Dates if Unknown: unknown - Review of Systems Constitutional: No Symptoms Eyes: No Symptoms Ears, Nose, & Throat: No Symptoms Respiratory: Dyspnea on Exertion (QURESHI), Other (Me on lying flat) Cardiac: Orthopnea Abdominal/Gastrointestinal: No Symptoms Genitourinary Symptoms: No Symptoms Musculoskeletal: No Symptoms Skin: No Symptoms Neurological: No Symptoms Psychological: No Symptoms Endocrine: No Symptoms Hematologic/Lymphatic: No Symptoms Immunological/Allergic: No Symptoms All Other Systems: Reviewed and Negative - Past Medical History Pertinent Past Medical History: Yes Neurological History: No Pertinent History ENT History: No Pertinent History Cardiac History: No Pertinent History Respiratory History: No Pertinent History Endocrine Medical History: Hyperthyroidism Musculoskeletal History: No Pertinent History GI Medical History: No Pertinent History History: No Pertinent History Psycho-Social History: No Pertinent History Male Reproductive Disorders: No Pertinent History Other Medical History: ezcema, CA lower lip,ca left ear - Past Surgical History Past Surgical History: Yes Neuro Surgical History: No Pertinent History Cardiac: No Pertinent History Respiratory: No Pertinent History Gastrointestinal: No Pertinent History Genitourinary: No Pertinent History Musculoskeletal: No Pertinent History, Orthopedic Surgery Male Surgical History: No Pertinent History Other Surgical History: T&A as a child,rt foot, colonoscopy, nose surgery - Social History Smoking Status: Never smoker Exposure to second hand smoke: Yes Drug Use: none Patient Lives Alone: No Significant Family History: no pertinent family hx - Nursing Vital Signs Nursing Vital Signs: Initial Vital Signs Pulse Rate 72 06/23/23 21:13 Respiratory Rate 16 06/23/23 21:13 Blood Pressure 156/93 06/23/23 21:13 Pain Scale Pain Intensity 0 - Physical Exam General Appearance: no apparent distress, alert, anxiety, thin Eye Exam: PERRL/EOMI, eyes nml inspection Ears, Nose, Throat Exam: hearing grossly normal, normal ENT inspection, normal pharynx Neck Exam: normal inspection, non-tender, supple, full range of motion Respiratory Exam: normal breath sounds, lungs clear, airway intact, No chest tenderness, No respiratory distress Cardiovascular/Chest Exam: normal heart sounds, regular rate/rhythm Abdominal/Gastrointestinal Exam: soft, normal bowel sounds, No tenderness Rectal Exam: not done Extremity Exam: non-tender, normal range of motion, normal inspection, normal capillary refill, no calf tenderness, no pedal edema, pelvis stable Neurologic Exam: alert, oriented x 3, cooperative, casino worker II-XII nml as tested, normal mood/affect, nml cerebellar function, nml station & gait, sensation nml Skin Exam: normal color, warm, dry Lymphatic Exam: No adenopathy SpO2 Interpretation: normal O2 Delivery: Room Air - Course Nursing assessment & vital signs reviewed: Yes EKG Interpreted by Me: RATE (80), Left [place] Deviation (Borderline), NORMAL INTERVALS, NORMAL QRS, NORMAL ST-T, Other (No acute ischemic changes on today's twelve-lead EKG.) Ordered Tests: Active Orders 24 hr Category Date Time Status Package Maker STAT Care 06/23/23 21:36 Active EKG-ER Only STAT Care 06/23/23 21:35 Active IV Insertion STAT Care 06/23/23 21:35 Active CHEST WITH CONTRAST [CT] Stat Exams 06/23/23 21:35 Completed CBC W DIFF Stat Lab 06/23/23 21:20 Completed CMP Stat Lab 06/23/23 21:20 Completed MAGNESIUM Stat Lab 06/23/23 21:20 Completed NT PRO BNPII Stat Lab 06/23/23 21:20 Completed PROTIME WITH INR Stat Lab 06/23/23 21:20 Completed TROPONIN Q4H Lab 06/23/23 21:20 Completed TROPONIN Q4H Lab 06/24/23 01:45 Ordered TROPONIN Q4H Lab 06/24/23 05:45 Ordered TSH [TSH, 3RD Generation] Stat Lab 06/23/23 21:00 Completed Medication Summary Generic Name Dose Route Start Last Admin Trade Name Freq PRN Reason Stop Dose Admin Sodium Chloride 1,000 mls @ 100 mls/hr 06/23/23 21:45 06/23/23 21:40 Sodium Chloride 0.9% 1000 Ml IV 07/23/23 21:44 100 mls/hr .Q10H MARCELINO Administration Lab/Rad Data: Laboratory Result Diagrams 06/23/23 21:20 06/23/23 21:20 Laboratory Results 02/24/24 02/24/24 02/24/24 Range/Units 21:20 21:20 21:20 WBC (4.0-10.5) x10^3/uL RBC (4.1-5.6) x10^6/uL Hgb (12.5-18.0) g/dL Hct (42-50) % MCV (78-100) fL MCH (26-32) pg MCHC (32-36) g/dL RDW (11.5-14.0) % Plt Count (150-450) x10^3/uL MPV (7.5-11.0) fL Gran % (36.0-66.0) % Immature Gran % (Auto) (0.00-0.4) % Nucleat RBC Rel Count (0.00-0.1) % Eos # (Auto) (0-0.5) x10^3/uL Immature Gran # (Auto) (0.00-0.03) x10^3u/L Absolute Lymphs (auto) (1.0-4.6) x10^3/uL Absolute Monos (auto) (0.0-1.3) x10^3/uL Absolute Nucleated RBC (0.00-0.01) x10^3u/L Lymphocytes % (24.0-44.0) % Monocytes % (0.0-12.0) % Eosinophils % (0.00-5.0) % Basophils % (0.0-0.4) % Absolute Granulocytes (1.4-6.9) x10^3/uL Basophils # (0-0.4) x10^3/uL PT (9.4-12.5) SECONDS INR (0.8-3.0) Sodium (137-145) mmol/L Potassium (3.5-5.1) mmol/L Chloride (98-107) mmol/L Carbon Dioxide (22-30) mmol/L Anion Gap (5-15) MEQ/L BUN (9-20) mg/dL Creatinine (0.66-1.25) mg/dL Estimated GFR ML/MIN Glucose (74-106) mg/dL Calcium (8.4-10.2) mg/dL Magnesium (1.6-2.3) mg/dL Total Bilirubin (0.2-1.3) mg/dL AST (17-59) U/L ALT (0-50) U/L Alkaline Phosphatase (38-126) U/L Troponin I 0.058 H* (0.000-0.034) ng/mL NT-Pro-B Natriuret Pep 406 (<300) pg/mL Serum Total Protein (6.3-8.2) g/dL Albumin (3.5-5.0) g/dL Free T4 (0.78-2.19) ng/dL TSH 3rd Generation (0.47-4.68) mIU/L Influenza Type A Ag NEGATIVE (NEGATIVE) Influenza Type B Ag NEGATIVE (NEGATIVE) RSV (PCR) NEGATIVE (NEGATIVE) SARS-CoV-2 (PCR) NEGATIVE (NEGATIVE) 06/23/23 06/23/23 06/23/23 Range/Units 21:20 21:20 21:20 WBC 3.5 L (4.0-10.5) x10^3/uL RBC 4.47 (4.1-5.6) x10^6/uL Hgb 14.4 (12.5-18.0) g/dL Hct 41.2 L (42-50) % MCV 92.2 (78-100) fL MCH 32.2 H (26-32) pg MCHC 35.0 (32-36) g/dL RDW 13.1 (11.5-14.0) % Plt Count 304 (150-450) x10^3/uL MPV 9.6 (7.5-11.0) fL Gran % 50.1 (36.0-66.0) % Immature Gran % (Auto) 0.3 (0.00-0.4) % Nucleat RBC Rel Count 0.0 (0.00-0.1) % Eos # (Auto) 0.04 (0-0.5) x10^3/uL Immature Gran # (Auto) 0.01 (0.00-0.03) x10^3u/L Absolute Lymphs (auto) 1.21 (1.0-4.6) x10^3/uL Absolute Monos (auto) 0.46 (0.0-1.3) x10^3/uL Absolute Nucleated RBC 0.00 (0.00-0.01) x10^3u/L Lymphocytes % 34.5 (24.0-44.0) % Monocytes % 13.1 H (0.0-12.0) % Eosinophils % 1.1 (0.00-5.0) % Basophils % 0.9 (0.0-0.4) % Absolute Granulocytes 1.76 (1.4-6.9) x10^3/uL Basophils # 0.03 (0-0.4) x10^3/uL PT 14.9 H (9.4-12.5) SECONDS INR 1.40 (0.8-3.0) Sodium 137 (137-145) mmol/L Potassium 3.3 L (3.5-5.1) mmol/L Chloride 106 (98-107) mmol/L Carbon Dioxide 20 L (22-30) mmol/L Anion Gap 14.0 (5-15) MEQ/L BUN 12 (9-20) mg/dL Creatinine 0.91 (0.66-1.25) mg/dL Estimated GFR 91.2 ML/MIN Glucose 105 (74-106) mg/dL Calcium 10.1 (8.4-10.2) mg/dL Magnesium 2.3 (1.6-2.3) mg/dL Total Bilirubin 0.60 (0.2-1.3) mg/dL AST 31 (17-59) U/L ALT 32 (0-50) U/L Alkaline Phosphatase 65 (38-126) U/L Troponin I (0.000-0.034) ng/mL NT-Pro-B Natriuret Pep (<300) pg/mL Serum Total Protein 7.1 (6.3-8.2) g/dL Albumin 4.7 (3.5-5.0) g/dL Free T4 (0.78-2.19) ng/dL TSH 3rd Generation (0.47-4.68) mIU/L Influenza Type A Ag (NEGATIVE) Influenza Type B Ag (NEGATIVE) RSV (PCR) (NEGATIVE) SARS-CoV-2 (PCR) (NEGATIVE) 06/23/23 06/23/23 Range/Units 21:00 21:00 WBC (4.0-10.5) x10^3/uL RBC (4.1-5.6) x10^6/uL Hgb (12.5-18.0) g/dL Hct (42-50) % MCV (78-100) fL MCH (26-32) pg MCHC (32-36) g/dL RDW (11.5-14.0) % Plt Count (150-450) x10^3/uL MPV (7.5-11.0) fL Gran % (36.0-66.0) % Immature Gran % (Auto) (0.00-0.4) % Nucleat RBC Rel Count (0.00-0.1) % Eos # (Auto) (0-0.5) x10^3/uL Immature Gran # (Auto) (0.00-0.03) x10^3u/L Absolute Lymphs (auto) (1.0-4.6) x10^3/uL Absolute Monos (auto) (0.0-1.3) x10^3/uL Absolute Nucleated RBC (0.00-0.01) x10^3u/L Lymphocytes % (24.0-44.0) % Monocytes % (0.0-12.0) % Eosinophils % (0.00-5.0) % Basophils % (0.0-0.4) % Absolute Granulocytes (1.4-6.9) x10^3/uL Basophils # (0-0.4) x10^3/uL PT (9.4-12.5) SECONDS INR (0.8-3.0) Sodium (137-145) mmol/L Potassium (3.5-5.1) mmol/L Chloride (98-107) mmol/L Carbon Dioxide (22-30) mmol/L Anion Gap (5-15) MEQ/L BUN (9-20) mg/dL Creatinine (0.66-1.25) mg/dL Estimated GFR ML/MIN Glucose (74-106) mg/dL Calcium (8.4-10.2) mg/dL Magnesium (1.6-2.3) mg/dL Total Bilirubin (0.2-1.3) mg/dL AST (17-59) U/L ALT (0-50) U/L Alkaline Phosphatase (38-126) U/L Troponin I (0.000-0.034) ng/mL NT-Pro-B Natriuret Pep (<300) pg/mL Serum Total Protein (6.3-8.2) g/dL Albumin (3.5-5.0) g/dL Free T4 1.98 (0.78-2.19) ng/dL TSH 3rd Generation 0.051 L (0.47-4.68) mIU/L Influenza Type A Ag (NEGATIVE) Influenza Type B Ag (NEGATIVE) RSV (PCR) (NEGATIVE) SARS-CoV-2 (PCR) (NEGATIVE) - Progress Progress: improved, re-examined Air Movement: good Progress Note: 06/23/23 23:59 Patient's medical issue is 1 of moderate to high complexity. Level complex in the workup performed is based on review of the patient's past medical history, review the patient's medication list, review of patient's drug allergy list, history present illness and physical findings on examination. This patient workup includes placement of intravenous line, twelve-lead EKG, troponin level, CBC, BNP, viral swabs, CT scan of the chest with contrast, free T4 and TSH levels. 06/24/23 00:00 The laboratory data results were interpreted by me. The patient has an elevated troponin level at 0.058. However, less than 3 weeks ago his troponin was g reater than 10 times higher than this value. Approximately 3 weeks ago patient was diagnosed with bilateral, multiple pulmonary emboli. He has since been placed on Xarelto. Patient also is on thyroid medication. He has a normal T4 and a extremely low TSH level. He has a picture clinically as well as laboratory data taveras of hyperthyroidism. CT scan of the chest with contrast was interpreted by radiologist and I reviewed the impression. Impression states interval complete resolution of pulmonary emboli. No other acute findings present. 06/24/23 01:04 I spoke with the telehospitalist Dr. Mendes. We reviewed the patient's medical history, presenting complaint, and physical findings on examination. We also reviewed the laboratory and radiographic study results. We both agree that this patient does not need to come into the hospital. We will treat him as outpatient. We believe that the troponin, although elevated, is significantly lower than where he was 3 weeks ago. It is coming down. The patient does not have any chest pain. Patient's room air oxygen saturation level is 99 to 100%. The chest CT does not show pneumonia or any residual pulmonary emboli present. I think his shakiness and anxiety and insomnia are secondary to the hyperthyroidism. We are going to have him stop his levothyroxine and provide him with propranolol (low-dose). He will call his primary care provider on 06/25/2023 to make arrangements for follow-up appointment and for further evaluation management. Blood Culture(s) Obtained: No Antibiotics given: No Discussed with : Amelia Counseled pt/family regarding: lab results, diagnosis, rad results Medical Desision Making - Independent Historian Additional History obtained from: Spouse - Diagnostic Testing Diagnostic test were ordered, analyzed, and reviewed by me: Yes Radiological Interpretation: Reviewed by me, Teleradiologist Report - Departure Departure Disposition: Home Clinical Impression: Hyperthyroidism, Anxiety, Insomnia Condition: Stable Critical Care Time: No Referrals: ZECHARIAH WILDER [Primary Care Provider] - Follow up/PCP as directed Additional Instructions: Stop your thyroid medication. Take the new medication as prescribed. Call your prescribing provider tomorrow, 06/25/2023, to make arranges for follow-up appointment for further evaluation management. Prescriptions: Propranolol HCl 10 mg PO BID #5 tablet
[2023-06-23 21:29] VITALS: TEMP 97.4
[2023-06-23] MEDS ORDERED: Sodium Chloride 0.9% 1000 ML 1,000 ML ONE (21:39)
[2023-06-23] MEDS: Sodium Chloride 0.9% 1000 ML 1,000 ML IV SCH (21:40)
[2023-06-23 21:55] LABS: Absolute Neutrophil Ct (ANC) 1.76 x10^3/uL (1.4-6.9); BASOPHIL % 0.9 % (0.0-0.4); Basophil (Absolute #) 0.03 x10^3/uL (0-0.4); Eosinophil % 1.1 % (0.00-5.0); Eosinophil (Absolute #) 0.04 x10^3/uL (0-0.5); Hematocrit 41.2 % (42-50); Hemoglobin 14.4 g/dL (12.5-18.0); IMMATURE GRAN # 0.01 x10^3u/L (0.00-0.03); IMMATURE GRAN % 0.3 % (0.00-0.4); Lymphocyte (Absolute #) 1.21 x10^3/uL (1.0-4.6); Lymphocytes % 34.5 % (24.0-44.0); Mean Cell Volume 92.2 fL (78-100); Mean Corpuscular Hemoglobin 32.2 pg (26-32); Mean Platelet Volume 9.6 fL (7.5-11.0); Monocyte (Absolute #) 0.46 x10^3/uL (0.0-1.3); Monocytes % 13.1 % (0.0-12.0); Neutrophil % 50.1 % (36.0-66.0); Platelet Count 304 x10^3/uL (150-450); Red Blood Count 4.47 x10^6/uL (4.1-5.6); Red Cell Distribution Width 13.1 % (11.5-14.0); White Blood Count 3.5 x10^3/uL (4.0-10.5)
[2023-06-23 22:09] LABS: INR 1.4 (0.8-3.0); PROTIME 14.9 SECONDS (9.4-12.5)
[2023-06-23 22:10] LABS: ALBUMIN 4.7 g/dL (3.5-5.0); BILIRUBIN,TOTAL 0.6 mg/dL (0.2-1.3); Calcium 10.1 mg/dL (8.4-10.2); Creatinine 1 0.91 mg/dL (0.66-1.25); EST GLOMERULAR FILTRATION RATE 91.2 ML/MIN; MAGNESIUM 2.3 mg/dL (1.6-2.3); Potassium 3.3 mmol/L (3.5-5.1); Total Protein 7.1 g/dL (6.3-8.2)
[2023-06-23 22:34] LABS: INFLUENZA A NEGATIVE (NEGATIVE); INFLUENZA B NEGATIVE (NEGATIVE); RESPIRATORY SYNCTIAL VIRUS NEGATIVE (NEGATIVE); SARS-CoV-2 Xpert Express NEGATIVE (NEGATIVE)
--- NOTE | 2023-06-23 23:56 | XRAY ---
CLINICAL HISTORY: Shortness of breath TECHNIQUE: Contiguous axial CT images of the chest were acquired with the administration of intravenous contrast. Coronal and sagittal reconstructions were obtained. COMPARISON: CT, dated 06/02/2023. FINDINGS: Complete resolution of the pulmonary embolism. Normal main pulmonary artery and the left and right main pulmonary trunks. No detected pulmonary embolism. Again, subpleural reticular and ground-glass opacities and are seen in both lungs, predominantly in both lower lobes and left lower lung lobe cyst. These could represent interstitial lung disease or sequala of previous inflammatory processes. There are small calcified nodules, likely granulomas, at the posterior segment of the right upper lobe. The rest of the scanned pulmonary parenchyma shows no definite consolidative lesions. No free or encysted pleural effusion. Heart size is normal, and there is no pericardial effusion. No pathologically enlarged mediastinal, hilar, or axillary lymph node was identified. There is no definite mass lesion in the chest wall. The scanned upper abdomen shows a 1.3 cm fluid density non-enhancing nodule at segment IVB of the liver. Degenerative changes are seen in the spine. IMPRESSION: Interval complete resolution of the pulmonary embolism. Compared with the previous examination , rest of the findings remain unchanged. Electronically Signed by: Zoey Vázquez MD. (06/23/2023 23:52:24 EST)
[2023-06-24] MEDS ORDERED: Klor Con ONE (01:42)
[2023-06-24] MEDS: Klor Con PO ONE (01:48)
[2023-06-24] MEDS: Inderal PO ONE (01:48)
[2023-06-24 02:23] VITALS: RESP 18
[2023-06-24 02:59] VITALS: BP 108/83; PULSE 75; O2SAT 98
== END 2023-06-24 02:59 | disposition home or self-care (01) ==
LOC: ED 21:12
DX: E05.90 Thyrotoxicosis, unspecified without thyrotoxic crisis or storm (principal); F41.9 Anxiety disorder, unspecified; G47.00 Insomnia, unspecified; E87.6 Hypokalemia; R06.02 Shortness of breath; Z79.01 Long term (current) use of anticoagulants; Z79.899 Other long term (current) drug therapy; Z86.711 Personal history of pulmonary embolism; Z20.828 Contact with and (suspected) exposure to other viral communicable diseases
CPT/HCPCS: 0241U; 36000; 36415; 71260; 80053; 83735; 83880; 84439; 84443; 84484; 85025; 85610; 93005; 93041; 99284; A9270-GY

== ENCOUNTER 2023-07-07 04:48 | Emergency (ER) | payer MEDICARE ==
[2023-07-07 05:15] VITALS: RESP 16; TEMP 97.8; O2SAT 100
--- NOTE | 2023-07-07 05:34 | ERPHSYRPT ---
- History of Present Illness Time Seen by Provider: 07/07/23 05:20 Source: patient Exam Limitations: no limitations Patient Subjective Stated Complaint: pt states he is unable sleep. pt states that he has been up for the past 3 days. pt states that he is afraid to sleep. Triage Nursing Assessment: pt ambulated into the er; pt is axo x4; c/o anxiety; pt denies pain; pt is restless, pacing the room; no respiratory distress present; skin PDW; vital wnl Physician History: 67yo m presents to ED for inability to sleep x 3d. Pt reports he has only been able to sleep for 2-3h in the past 3d. Pt states he has had very bad anxiety about sleeping since he was diagnosed w/ multiple PEs 3 wks ago. Pt has been taking xarelto daily, had repeat CTA chest on 06/23 that showed resolution of PEs. Pt states that even though he knows the PEs have resolved, he is still afraid that if he falls asleep he will not wake back up. Pt was started on buspirone last week, has taken 1 dose w/o improvement in anxiety. Pt had his synthroid dose cut in half this week as well, follows w/ Dr Melendez. Pt currently denies cp, soa, n/v, SI, HI. Timing/Duration: day(s) (3) Severity of Symptoms-Max: mild Severity of Symptoms-Current: mild Context related to: other (health) Associated Symptoms: anxiety, insomnia, No paranoid, No suicidal ideation Previous symptoms: no prior history Allergies/Adverse Reactions: ketorolac [From Toradol] Allergy (Verified 06/23/23 21:14) Home Medications: Levothyroxine Sodium 50 Mcg [Synthroid 50 Mcg] 25 mcg PO DAILY 02/07/22 [History] Upadacitinib [Rinvoq] 15 mg PO DAILY 03/03/23 [History] Buspirone HCl 5 mg [Buspar 5 mg] 10 mg PO BID 06/23/23 [History] Omeprazole 1 cap PO DAILY 06/23/23 [History] Rivaroxaban [Xarelto] 1 tab PO BID 06/23/23 [History] Hx Tetanus, Diphtheria Vaccination/Date Given: (unk) Hx Influenza Vaccination/Date Given: No Hx Pneumococcal Vaccination/Date Given: No Travel Risk - International Travel Have you traveled outside of the country in past 3 weeks: No - Coronavirus Screening Are you exhibiting any of the following symptoms?: No Close contact with a COVID-19 positive Pt in past 14-21 Days: No - Vaccine Status Have you recieved a Covid-19 vaccination: Yes (unknown) Surveillance Agent: Moderna - Vaccination Dates Date of 2cond Vaccination (if applicable): 2020 - Past Medical History Pertinent Past Medical History: Yes Neurological History: No Pertinent History ENT History: No Pertinent History Cardiac History: No Pertinent History Respiratory History: Pulmonary Embolism Endocrine Medical History: Hyperthyroidism Musculoskeletal History: No Pertinent History GI Medical History: No Pertinent History History: No Pertinent History Psycho-Social History: No Pertinent History Male Reproductive Disorders: No Pertinent History Other Medical History: ezcema, CA lower lip,ca left ear - Past Surgical History Past Surgical History: Yes Neuro Surgical History: No Pertinent History Cardiac: No Pertinent History Respiratory: No Pertinent History Gastrointestinal: No Pertinent History Genitourinary: No Pertinent History Musculoskeletal: No Pertinent History, Orthopedic Surgery Male Surgical History: No Pertinent History Other Surgical History: T&A as a child,rt foot, colonoscopy, nose surgery - Social History Smoking Status: Never smoker Exposure to second hand smoke: No Drug Use: none Patient Lives Alone: No Significant Family History: no pertinent family hx - Review of Systems Constitutional: Fatigue, No Fever, No Chills Respiratory: No Symptoms Cardiac: No Symptoms Abdominal/Gastrointestinal: No Symptoms Psychological: Anxiety, No Drug Abuse, No Depression, No Suicidal Ideations, No Homicidal Ideations, No Hallucinations - Nursing Vital Signs Nursing Vital Signs: Initial Vital Signs Pulse Rate 66 07/07/23 05:00 Blood Pressure 114/78 07/07/23 05:00 O2 Sat by Pulse Oximetry 100 07/07/23 05:00 Pain Scale Pain Intensity 0 - Physical Exam General Appearance: no apparent distress Respiratory Exam: normal breath sounds, lungs clear, airway intact, No chest tenderness, No respiratory distress Cardiovascular Exam: regular rate/rhythm, normal heart sounds Neurological Exam: alert, normal mood/affect, calm, oriented x 3, anxious Appearance: appropriate appearance, appropriate insight, neat, no memory impairment Behavior/Eye Contact/Speech: alert & cooperative, good eye contact, normal speech Thoughts/Hallucinations: normal thought pattern, no apparent hallucination SpO2 Interpretation: normal SpO2: 100 O2 Delivery: Room Air Ordered Tests: Active Orders 24 hr Category Date Time Status CBC W DIFF Stat Lab 07/07/23 05:34 Completed CMP Stat Lab 07/07/23 05:34 Completed TSH [TSH, 3RD Generation] Stat Lab 07/07/23 05:34 Completed Lab/Rad Data: Laboratory Result Diagrams 07/07/23 05:34 07/07/23 05:34 Laboratory Results 07/07/23 07/07/23 07/07/23 Range/Units 05:34 05:34 05:34 WBC 5.1 (4.0-10.5) x10^3/uL RBC 4.60 (4.1-5.6) x10^6/uL Hgb 14.5 (12.5-18.0) g/dL Hct 43.5 (42-50) % MCV 94.6 (78-100) fL MCH 31.5 (26-32) pg MCHC 33.3 (32-36) g/dL RDW 13.2 (11.5-14.0) % Plt Count 258 (150-450) x10^3/uL MPV 9.0 (7.5-11.0) fL Gran % 70.1 H (36.0-66.0) % Immature Gran % (Auto) 0.2 (0.00-0.4) % Nucleat RBC Rel Count 0.0 (0.00-0.1) % Eos # (Auto) 0.05 (0-0.5) x10^3/uL Immature Gran # (Auto) 0.01 (0.00-0.03) x10^3u/L Absolute Lymphs (auto) 0.98 L (1.0-4.6) x10^3/uL Absolute Monos (auto) 0.45 (0.0-1.3) x10^3/uL Absolute Nucleated RBC 0.00 (0.00-0.01) x10^3u/L Lymphocytes % 19.4 L (24.0-44.0) % Monocytes % 8.9 (0.0-12.0) % Eosinophils % 1.0 (0.00-5.0) % Basophils % 0.4 (0.0-0.4) % Absolute Granulocytes 3.55 (1.4-6.9) x10^3/uL Basophils # 0.02 (0-0.4) x10^3/uL Sodium 139 (135-145) mmol/L Potassium 4.2 (3.5-5.1) mmol/L Chloride 107 (98-107) mmol/L Carbon Dioxide 23 (22-30) mmol/L Anion Gap 12.9 (5-15) MEQ/L BUN 27 H (9-20) mg/dL Creatinine 1.09 (0.66-1.25) mg/dL Estimated GFR 73.5 ML/MIN Glucose 106 (74-106) mg/dL Calcium 9.9 (8.4-10.2) mg/dL Total Bilirubin 0.60 (0.2-1.3) mg/dL AST 28 (17-59) U/L ALT 29 (0-50) U/L Alkaline Phosphatase 67 (38-126) U/L Serum Total Protein 6.9 (6.3-8.2) g/dL Albumin 4.4 (3.5-5.0) g/dL TSH 3rd Generation 0.459 L (0.47-4.68) mIU/L - Progress Progress: unchanged, re-examined Progress Note: 07/07/23 06:06 pt resting comfortably, still reports anxiety, requesting sleep aid vitals stable, respirations unlabored, no acute complaints other than sleepiness 07/07/23 06:52 Labs grossly normal, TSH slightly lower than normal limit, no electrolyte abnormalities pt reassessed, resting comfortably discussed lab results w/ pt, discussed prior imaging for reassurance I informed pt that I do not routinely prescribe sleep aid medications from the ER and that he should f/u w/ his PCP to discuss sleep issues Pt has appt scheduled w/ Dr Melendez on 07/09/23 Instructed pt to take buspirone as prescribed and be sure to take daily, discussed that this medication does need time to build up in your system to work Recommend good sleep hygeine - no TV in bedroom, bedtime routine - strict adherence Instructed to return to ED if chest pain develops, hallucinations start (audito ry or visual), mental status changes Medical Desision Making - Risk of complications Low Risk: Low risk of morbidity from additional dx testing or treatment - Departure Departure Disposition: Home Clinical Impression: Lack of adequate sleep, Anxiety about health Condition: Stable Critical Care Time: No Referrals: ZECHARIAH MELENDEZ [Primary Care Provider] - Follow up/PCP as directed Additional Instructions: Pt has appt scheduled w/ Dr Melendez on 07/09/23 Instructed pt to take buspirone as prescribed and be sure to take daily, discussed that this medication does need time to build up in your system to work Recommend good sleep hygeine - no TV in bedroom, bedtime routine - strict adherence Instructed to return to ED if chest pain develops, hallucinations start (auditory or visual), mental status changes
[2023-07-07 05:36] LABS: Absolute Neutrophil Ct (ANC) 3.55 x10^3/uL (1.4-6.9); BASOPHIL % 0.4 % (0.0-0.4); Basophil (Absolute #) 0.02 x10^3/uL (0-0.4); Eosinophil (Absolute #) 0.05 x10^3/uL (0-0.5); Hematocrit 43.5 % (42-50); Hemoglobin 14.5 g/dL (12.5-18.0); IMMATURE GRAN # 0.01 x10^3u/L (0.00-0.03); IMMATURE GRAN % 0.2 % (0.00-0.4); Lymphocyte (Absolute #) 0.98 x10^3/uL (1.0-4.6); Lymphocytes % 19.4 % (24.0-44.0); Mean Cell Volume 94.6 fL (78-100); Mean Corpuscular Hemoglobin 31.5 pg (26-32); Mean Corpuscular Hgb Concent. 33.3 g/dL (32-36); Monocyte (Absolute #) 0.45 x10^3/uL (0.0-1.3); Monocytes % 8.9 % (0.0-12.0); Neutrophil % 70.1 % (36.0-66.0); Platelet Count 258 x10^3/uL (150-450); Red Cell Distribution Width 13.2 % (11.5-14.0); White Blood Count 5.1 x10^3/uL (4.0-10.5)
[2023-07-07 05:55] LABS: ALBUMIN 4.4 g/dL (3.5-5.0); ANION GAP 12.9 MEQ/L (5-15); BILIRUBIN,TOTAL 0.6 mg/dL (0.2-1.3); Calcium 9.9 mg/dL (8.4-10.2); Creatinine 1 1.09 mg/dL (0.66-1.25); EST GLOMERULAR FILTRATION RATE 73.5 ML/MIN; Potassium 4.2 mmol/L (3.5-5.1); Total Protein 6.9 g/dL (6.3-8.2)
[2023-07-07 07:04] VITALS: BP 102/71; PULSE 64
== END 2023-07-07 07:09 | disposition home or self-care (01) ==
LOC: ED 04:48
DX: F41.9 Anxiety disorder, unspecified (principal); Z72.820 Sleep deprivation; Z79.01 Long term (current) use of anticoagulants; Z86.711 Personal history of pulmonary embolism
CPT/HCPCS: 36415; 80053; 84443; 85025; 99282

== ENCOUNTER 2024-04-10 15:31 | Day surgery (SDC) | payer MEDICARE ==
[2012-05-06 08:19] VITALS: BP 98/55
[2024-04-10] MEDS ORDERED: Decadron 4 MG INJ IV ONE (15:32)
[2024-04-10] MEDS ORDERED: LIDOCAINE HCL 1% AMPUL 5 ML IJ ONE (15:32)
--- NOTE | 2024-04-10 19:36 | XRAY ---
Indication: Right piriformis injection. Intraoperative fluoroscopy provided for 14 seconds. Single digital spot image submitted for interpretation demonstrates posterior needle tip projecting over right piriformis. Small amount of contrast injected for needle tip placement. Correlate with intraoperative findings/report.
--- NOTE | 2024-04-11 09:07 | XRAY ---
14 seconds of fluoroscopy was used in surgery for a right piriformis injection.
== END 2024-04-10 17:28 | disposition home or self-care (01) ==
LOC: SDC-PAIN 15:31
PROVIDERS: ATTEND Psychiatry & Neurology Pain Medicine
DX: M79.18 Myalgia, other site (principal)
CPT/HCPCS: 20553; 72170; 77002; J1100; Q9966

== ENCOUNTER 2024-04-23 07:59 | Emergency (ER) | payer MEDICARE ==
[2024-04-23 08:08] VITALS: TEMP 98.7
--- NOTE | 2024-04-23 08:42 | ERPHSYRPT ---
- History of Present Illness Time Seen by Provider: 04/23/24 08:34 Source: patient, EMS Exam Limitations: no limitations Patient Subjective Stated Complaint: pt was up all night vomiting and diarrhea and today he got weak and unsure if he had a syncopal episode or not but fell and hit his left side of his head/ear, and shoulder Triage Nursing Assessment: Pt brought to the ER by EMS, vitals wnl, rates head pain as 5/10, pulses normal, skin n/w/d, skin tear to left side of forehead and shoulder, pt reports feeling better after getting a 200ml bolus from EMS and believes he is dehydrated, no difficulty breathing, pt is on blood thinners Physician History: pt was up all night vomiting and diarrhea and today he got weak and unsure if he had a syncopal episode or not but fell and hit his left side of his head/ear, a nd shoulder skin tear to left side of forehead and shoulder, pt reports feeling better after getting a 200ml bolus from EMS and believes he is dehydrated, no difficulty breathing, pt is on blood thinners. Hx of Pulmonary Embolism and pulmonary fibrosis Timing/Duration: today Associated Symptoms: vomiting Allergies/Adverse Reactions: ketorolac [From Toradol] Allergy (Verified 04/23/24 08:08) Home Medications: Levothyroxine Sodium 50 Mcg [Synthroid 50 Mcg] 25 mcg PO DAILY 02/07/22 [ History] Upadacitinib [Rinvoq] 15 mg PO DAILY 03/03/23 [History] Omeprazole 20 mg PO DAILY 06/23/23 [History] Rivaroxaban [Xarelto] 15 mg PO DAILY 06/23/23 [History] Nintedanib Esylate [Ofev] 150 mg PO BID 04/23/24 [History] Prednisone 20 mg [Deltasone 20 mg] 20 mg PO DAILY 04/23/24 [History] Hx Tetanus, Diphtheria Vaccination/Date Given: (unk) Hx Influenza Vaccination/Date Given: No Hx Pneumococcal Vaccination/Date Given: No Travel Risk - International Travel Have you traveled outside of the country in past 3 weeks: No - Emerging Infectious Disease Are you exhibiting symptoms associated with any current EIDs: Yes Symptoms: Diarrhea, Vomitting - Review of Systems Constitutional: No Fever, No Chills Eyes: No Symptoms Ears, Nose, & Throat: No Symptoms Respiratory: No Cough, No Dyspnea Cardiac: Syncope, No Chest Pain, No Edema Abdominal/Gastrointestinal: Vomiting, Diarrhea, No Abdominal Pain Genitourinary Symptoms: No Dysuria Musculoskeletal: Fall, No Back Pain, No Neck Pain Skin: No Rash Neurological: No Dizziness, No Focal Weakness, No Sensory Changes Psychological: No Symptoms Endocrine: No Symptoms All Other Systems: Reviewed and Negative - Past Medical History Pertinent Past Medical History: Yes Neurological History: No Pertinent History ENT History: No Pertinent History Cardiac History: No Pertinent History Respiratory History: Pulmonary Embolism Endocrine Medical History: Hyperthyroidism Musculoskeletal History: No Pertinent History GI Medical History: No Pertinent History History: No Pertinent History Psycho-Social History: No Pertinent History Male Reproductive Disorders: No Pertinent History Other Medical History: ezcema, CA lower lip,ca left ear - Past Surgical History Past Surgical History: Yes Neuro Surgical History: No Pertinent History Cardiac: No Pertinent History Respiratory: No Pertinent History Gastrointestinal: No Pertinent History Genitourinary: No Pertinent History Musculoskeletal: No Pertinent History, Orthopedic Surgery Male Surgical History: No Pertinent History Other Surgical History: T&A as a child,rt foot, colonoscopy, nose surgery Significant Family History: no pertinent family hx - Social History Smoking Status: Never smoker Exposure to second hand smoke: No Drug Use: none Patient Lives Alone: No - Social Determinants of Health Will the patient participate in the screening: Yes Do you worry about a steady place to live?: No Do you have any problems with any of the following?: No known problems In the past 12 months,have you had to go without utilities?: No Transportation Issues: No Has anyone in your support network made you feel unsafe?: No Have you or anyone in your house had to go without enough: No - Nursing Vital Signs Nursing Vital Signs: Initial Vital Signs Temperature 98.7 F 04/23/24 08:01 Pulse Rate 78 04/23/24 08:01 Respiratory Rate 19 04/23/24 08:01 Blood Pressure 115/73 04/23/24 08:01 O2 Sat by Pulse Oximetry 99 04/23/24 08:01 Pain Scale Pain Intensity 4 - Physical Exam General Appearance: no apparent distress, alert Eye Exam: PERRL/EOMI, eyes nml inspection Ears, Nose, Throat Exam: normal ENT inspection, TMs normal, pharynx normal, moist mucous membranes, other (laceration left ear, ) Neck Exam: normal inspection, non-tender, supple, full range of motion Respiratory Exam: normal breath sounds, lungs clear, No respiratory distress Cardiovascular Exam: regular rate/rhythm, normal heart sounds, normal peripheral pulses Gastrointestinal/Abdomen Exam: soft, normal bowel sounds, No tenderness, No mass Back Exam: normal inspection, normal range of motion, No CVA tenderness, No vertebral tenderness Extremity Exam: normal inspection, normal range of motion, pelvis stable Neurologic Exam: alert, oriented x 3, cooperative, normal mood/affect, nml cerebellar function, nml station & gait, sensation nml, No motor deficits Skin Exam: normal color, warm, dry, No rash Lymphatic Exam: No adenopathy SpO2 Interpretation: normal SpO2: 99 O2 Delivery: Room Air - Course Nursing assessment & vital signs reviewed: Yes EKG Interpreted by Me: Sinus Rhythm Rhythm Strip: Normal Sinus Rhythm - Radiology Exams Chest X-ray Interpretation: Interpreted by me, Reviewed by me, No Pneumonia - CT Exams Head CT Interpretation: Negative, Tele-radiologist Report Ordered Tests: Active Orders 24 hr Category Date Time Status Hydraulic Riveter STAT Care 04/23/24 08:29 Active EKG-ER Only STAT Care 04/23/24 08:27 Active Wound Care STAT Care 04/23/24 08:30 Active CHEST 2 VIEWS (PA AND LAT) Stat Exams 04/23/24 08:46 Taken HEAD WITHOUT CONTRAST [CT] Stat Exams 04/23/24 08:28 Completed CBC W DIFF Stat Lab 04/23/24 09:04 Completed CMP Stat Lab 04/23/24 09:04 Completed TROPONIN Q4H Lab 04/23/24 09:04 Completed TROPONIN Q4H Lab 04/23/24 12:30 Ordered TROPONIN Q4H Lab 04/23/24 16:30 Ordered TROPONIN Q4H Lab 04/23/24 20:30 Ordered UA W/RFX UR CULTURE Stat Lab 04/23/24 08:59 Completed Medication Summary Discontinued Medications Generic Name Dose Route Start Last Admin Trade Name Freq PRN Reason Stop Dose Admin Sodium Chloride 1,000 mls @ 999 mls/hr 04/23/24 08:27 04/23/24 08:47 Sodium Chloride 0.9% 1000 Ml IV 04/23/24 09:27 999 mls/hr .Q1H1M STA Administration Sodium Chloride Confirm 04/23/24 08:44 Sodium Chloride 0.9% 1000 Ml Administered 04/23/24 08:45 Dose 1,000 mls @ ud .ROUTE .STK-MED ONE Ceftriaxone Sodium 1 gm in 100 mls @ 200 mls/hr 04/23/24 09:31 04/23/24 09:43 Rocephin 1 Gm / 100 Ml Nacl IV 04/23/24 10:00 200 mls/hr STAT ONE 200 mls/hr Administration Ceftriaxone Sodium Confirm 04/23/24 09:40 Rocephin 1 Gm / 100 Ml Nacl Administered 04/23/24 09:41 Dose 1 gm in 100 mls @ ud IV .STK-MED ONE Lab/Rad Data: Laboratory Result Diagrams 04/23/24 09:04 04/23/24 09:04 Laboratory Results 04/23/24 04/23/24 04/23/24 Range/Units 09:04 09:04 09:04 WBC 16.0 H (4.23-9.07) x10^3/uL RBC 4.58 L (4.63-6.08) x10^6/uL Hgb 15.0 (13.7-17.5) g/dL Hct 45.1 (40.1-51.0) % MCV 98.5 H (79.0-92.2) fL MCH 32.8 H (25.7-32.2) pg MCHC 33.3 (32.3-36.5) g/dL RDW 13.5 (11.6-14.4) % Plt Count 286 (163-337) x10^3/uL MPV 9.2 L (9.4-12.4) fL Gran % 94.7 H (34.0-67.9) % Immature Gran % (Auto) 0.4 (0.001-0.429) % Nucleat RBC Rel Count 0.0 (0.00-0.2) % Eos # (Auto) 0.03 L (0.04-0.54) x10^3/uL Immature Gran # (Auto) 0.06 H (0.001-0.031) x10^3u/L Absolute Lymphs (auto) 0.20 L (1.32-3.57) x10^3/uL Absolute Monos (auto) 0.53 (0.30-0.82) x10^3/uL Absolute Nucleated RBC 0.00 (0.00-0.012) x10^3u/L Lymphocytes % 1.2 L (21.8-53.1) % Monocytes % 3.3 L (5.3-12.2) % Eosinophils % 0.2 L (0.8-7.0) % Basophils % 0.2 (0.2-1.2) % Absolute Granulocytes 15.17 H (1.78-5.38) x10^3/uL Basophils # 0.03 (0.01-0.08) x10^3/uL Sodium 140 (135-145) mmol/L Potassium 4.8 (3.5-5.1) mmol/L Chloride 106 (98-107) mmol/L Carbon Dioxide 23 (22-30) mmol/L Anion Gap 15.0 (5-15) MEQ/L BUN 36 H (9-20) mg/dL Creatinine 1.06 (0.66-1.25) mg/dL Estimated GFR 75.5 ML/MIN Glucose 121 H (74-106) mg/dL Calcium 9.2 (8.4-10.2) mg/dL Total Bilirubin 1.10 (0.2-1.3) mg/dL AST 34 (17-59) U/L ALT 43 (0-50) U/L Alkaline Phosphatase 53 (38-126) U/L Troponin I < 0.012 (0.000-0.033) ng/mL Serum Total Protein 6.3 (6.3-8.2) g/dL Albumin 4.2 (3.5-5.0) g/dL Urine Color (Yellow) Urine Appearance (Clear) Urine pH (4.6-8.0) Ur Specific [place] (1.005-1.030) Urine Protein (Negative) Urine Glucose (UA) (Negative) mg/dL Urine Ketones (Negative) Urine Blood (Negative) Urine Nitrite (Negative) Urine Bilirubin (Negative) Urine Urobilinogen (0.2) mg/dL Ur Leukocyte Esterase (Negative) U Hyaline Cast (Auto) (0-2) /LPF Urine Microscopic RBC (0-5) /HPF Urine Microscopic WBC (0-5) /HPF Ur Epithelial Cells (None Seen) /HPF Urine Bacteria (None Seen) /HPF Urine Culture Reflexed (NO) 12/25/24 Range/Units 08:59 WBC (4.23-9.07) x10^3/uL RBC (4.63-6.08) x10^6/uL Hgb (13.7-17.5) g/dL Hct (40.1-51.0) % MCV (79.0-92.2) fL MCH (25.7-32.2) pg MCHC (32.3-36.5) g/dL RDW (11.6-14.4) % Plt Count (163-337) x10^3/uL MPV (9.4-12.4) fL Gran % (34.0-67.9) % Immature Gran % (Auto) (0.001-0.429) % Nucleat RBC Rel Count (0.00-0.2) % Eos # (Auto) (0.04-0.54) x10^3/uL Immature Gran # (Auto) (0.001-0.031) x10^3u/L Absolute Lymphs (auto) (1.32-3.57) x10^3/uL Absolute Monos (auto) (0.30-0.82) x10^3/uL Absolute Nucleated RBC (0.00-0.012) x10^3u/L Lymphocytes % (21.8-53.1) % Monocytes % (5.3-12.2) % Eosinophils % (0.8-7.0) % Basophils % (0.2-1.2) % Absolute Granulocytes (1.78-5.38) x10^3/uL Basophils # (0.01-0.08) x10^3/uL Sodium (135-145) mmol/L Potassium (3.5-5.1) mmol/L Chloride (98-107) mmol/L Carbon Dioxide (22-30) mmol/L Anion Gap (5-15) MEQ/L BUN (9-20) mg/dL Creatinine (0.66-1.25) mg/dL Estimated GFR ML/MIN Glucose (74-106) mg/dL Calcium (8.4-10.2) mg/dL Total Bilirubin (0.2-1.3) mg/dL AST (17-59) U/L ALT (0-50) U/L Alkaline Phosphatase (38-126) U/L Troponin I (0.000-0.033) ng/mL Serum Total Protein (6.3-8.2) g/dL Albumin (3.5-5.0) g/dL Urine Color Yellow (Yellow) Urine Appearance Clear (Clear) Urine pH 6.5 (4.6-8.0) Ur Specific [place] 1.025 (1.005-1.030) Urine Protein 30 (Negative) Urine Glucose (UA) Negative (Negative) mg/dL Urine Ketones Trace A (Negative) Urine Blood Negative (Negative) Urine Nitrite Negative (Negative) Urine Bilirubin Negative (Negative) Urine Urobilinogen 1.0 A (0.2) mg/dL Ur Leukocyte Esterase Trace A (Negative) U Hyaline Cast (Auto) 3-5 A (0-2) /LPF Urine Microscopic RBC 3-5 (0-5) /HPF Urine Microscopic WBC 0-2 (0-5) /HPF Ur Epithelial Cells None Seen (None Seen) /HPF Urine Bacteria None Seen (None Seen) /HPF Urine Culture Reflexed NO (NO) LINICAL HISTORY: fall, Head injury COMPARISON: None. TECHNIQUE: An axial non-contrast CT scan of the brain was performed from the skull base to the high parietal region. One of the following dose reduction techniques was utilized for this exam: Automated exposure control, adjustment of the mA and/or kV according to patient size, and use of iterative reconstruction. FINDINGS: Brain Parenchyma: Normal attenuation of the cerebral hemispheres, cerebellum, and brainstem. No evidence of acute infarct, hemorrhage, or mass effect. No abnormal areas of hypo- or hyperattenuation. Age-proportionate involutional changes are seen as evident by the prominence of intra-and extra- axial CSF spaces. A few areas of hypodensities were noted in the bilateral periventricular region and subcortical deep white matter representing microvascular ischemic changes. Ventricular System: Ventricles are normal in size and configuration. No evidence of hydrocephalus or ventricular enlargement. PatientID: [id number] Patient Name: RAFA TRUONG Exam Date: 04/23/2024 Procedure: HEAD WITHOUT CONTRAST page 1 of 2 Subarachnoid Spaces: Normal sulci and cisterns. No evidence of subarachnoid hemorrhage or extra-axial fluid collections. Cerebellum and Brainstem: Normal size and signal. No masses, lesions, or areas of abnormal signal. Orbits: Normal appearance of the globes, optic nerves, and extraocular muscles. No evidence of orbital masses or abnormal signals. Sinuses: Polypoidal mucosal thickening was noted in the bilateral maxillary sinuses. No evidence of sinusitis or mucosal thickening in rest of the sinuses. Mastoid Air Cells: Clear mastoid air cells. No evidence of mastoiditis. Skull: Normal skull morphology. IMPRESSION: 1. No definite acute osseous and soft tissue injury noted. 2. No evidence of cerebral infarct, intra parenchymal or intra ventricular hemorrhage seen. Early changes of acute ischemia are sometimes not visible on CT if there is a strong clinical suspicion MRI with DWI/ADC maps is suggested for further evaluation. 3. Age proportionate changes with few microvascular ischemic changes are noted. [facility] ER was called at [phone] at 8:15 AM INSURANCE APPLICATION INVESTIGATOR, 04/23/2024, and nurse Michelle was informed about negative stroke results. - Progress Progress: improved, pain not gone completely Progress Note: 04/23/24 09:25 Patient is informed about the laceration in his left ear lower pinna and upper tragus. Laceration is appears to be extending into subcutaneous tissue and irregular. Patient is informed that because of the complicated nature of the laceration we are going to push simple dressing at this point of time and he is advised to call his primary care physician and let it be looked and if necessary advised to be referred to plastic surgeon for further management. Patient and his understood those. We will give some more discharge instruction related to this laceration of the left ear. Counseled pt/family regarding: lab results, diagnosis, need for follow-up, rad results Medical Desision Making - Independent Historian Additional History obtained from: Spouse - Diagnostic Testing Diagnostic test were ordered, analyzed, and reviewed by me: Yes Radiological Interpretation: Interpreted by me, Reviewed by me - Risk of complications The pt has a mod risk of morbidity or mortality based on: Need for minor surgical intervention in patient with know risk factors - Departure Departure Disposition: Home Clinical Impression: Fall against object, Gastroenteritis and colitis, viral Laceration of ear, external, left, complicated Qualifiers: Encounter type: initial encounter Qualified Code(s): S01.312A - Laceration without foreign body of left ear, initial encounter Contusion Qualifiers: Encounter type: initial encounter Contusion area: head Contusion of head detail: periocular area Laterality: left Qualified Code(s): S00.12XA - Contusion of left eyelid and periocular area, initial encounter Condition: Stable Critical Care Time: No Referrals: ZECHARIAH WILDER [Primary Care Provider] - Follow up with PCP 1 day Instructions: Contusion (DC), Preventing falls in adults Additional Instructions: You have a laceration on your left ear which is complicated to suture in the emergency room because you are on blood thinner. At this point of time we have approximated the skin and put some dressing but you need to follow-up with your primary care physician in next 24 to 48 hours and let them look at it and then if needed you may need a referral to fix this laceration by plastic surgeon or general surgeon. Discuss with your primary care physician for further management. Discharge/Care Plan RAFA TRUONG was seen on 04/23/24 in the Emergency Room. The patient was counseled regarding Diagnosis,Lab results, Imaging studies, need for follow up and when to return to the Emergency Room. Prescriptions given: Discharge Note I have spoken with the patient and/or caregivers. I have explained the patient's condition, diagnosis and treatment plan based on the information available to me at this time. I have answered the patient's and/or caregiver's questions and addressed any concerns. The patient and/or caregivers have as good understanding of the patient's diagnosis, condition and treatment plan as can be expected at this point. The vital signs have been stable. The patient's condition is stable and appropriate for discharge from the emergency department. The patient will pursue further outpatient evaluation with the primary care physician or other designated or consulting physician as outlined in the discharge instructions. The patient and/or caregivers are agreeable to this plan of care and follow-up instructions have been explained in detail. The patient and/or caregivers have received these instruction. The patient/and or caregivers are aware that any significant change in condition or worsening of symptoms should prompt an immediate return to this or the closest emergency department or call 911. RAFA TRUONG was seen on 04/23/24 n the Emergency Room. At that time you were treated for an emergent condition, during your visit Laboratory, Radiology and/or other procedures may have been ordered. It is very important that you follow-up with your Primary Care Physician ZECHARIAH WILDER within the next 24-48 hours to review your Emergency Room visit and the final results of testing that was ordered. Some test results such as Urine Cultures, Blood Cultures, and other cultures if ordered will not be finalized for 24-48 hours. If you do not have a Primary Care Provider please call the medical records de partment at [phone] ext [phone] to obtain a copy of your results or you may sign into our patient portal to obtain these results by visiting us @ [email or web address] and completing the following steps: 1. Click on the Patient Portal link 2. Click the Patient Self Enrollment Link to complete the enrollment form and entering your 3. Once the enrollment form is completed you will receive an email with a temporary ID and password at the email address you provided. 4. Next choose a user name and password. Your user name must be at least 4 characters long and your password must be at least 4 characters long. 5. Choose a security question from the list and provide your answer to the question. If you already have signed into the Health Portal you may access your Health Care Information 20/11 by the following steps: 1. Login to our website @ [email or web address] 2. Enter your original user name and password. FAQS The [facility] Portal is an online tool that contains your Lab Results, Radiology Reports, Visit History, Discharge Instructions and Health Summary Lab and Radiology Results will not be available for 72 hours on the portal. The Portal is a secure site, passwords are encryted and URLs are re-written so they cannot be copied and pasted. You and authorized family members are the only ones who can access your Portal. Also there is a timeout feature that protects your information if you leave the Portal page open. If you have technical difficulty please use the Contact Us link on the page this will allow you to submit any questions you have regarding the Portal or you may contact the Medical Record Department at [phone]. Prescriptions: Doxycycline Hyclate 100 mg [Vibramycin 100 MG] 100 mg PO BID #15 tab
[2024-04-23] MEDS ORDERED: Sodium Chloride 0.9% 1000 ML 1,000 ML ONE (08:44)
[2024-04-23] MEDS: Sodium Chloride 0.9% 1000 ML 1,000 ML IV STA (08:47)
[2024-04-23 09:12] LABS: Absolute Neutrophil Ct (ANC) 15.17 x10^3/uL (1.78-5.38); BASOPHIL % 0.2 % (0.2-1.2); Basophil (Absolute #) 0.03 x10^3/uL (0.01-0.08); Eosinophil % 0.2 % (0.8-7.0); Eosinophil (Absolute #) 0.03 x10^3/uL (0.04-0.54); Hematocrit 45.1 % (40.1-51.0); IMMATURE GRAN # 0.06 x10^3u/L (0.001-0.031); IMMATURE GRAN % 0.4 % (0.001-0.429); Lymphocytes % 1.2 % (21.8-53.1); Mean Cell Volume 98.5 fL (79.0-92.2); Mean Corpuscular Hemoglobin 32.8 pg (25.7-32.2); Mean Corpuscular Hgb Concent. 33.3 g/dL (32.3-36.5); Mean Platelet Volume 9.2 fL (9.4-12.4); Monocyte (Absolute #) 0.53 x10^3/uL (0.30-0.82); Monocytes % 3.3 % (5.3-12.2); Neutrophil % 94.7 % (34.0-67.9); Platelet Count 286 x10^3/uL (163-337); Red Blood Count 4.58 x10^6/uL (4.63-6.08); Red Cell Distribution Width 13.5 % (11.6-14.4)
--- NOTE | 2024-04-23 09:21 | XRAY ---
CLINICAL HISTORY: fall, Head injury COMPARISON: None. TECHNIQUE: An axial non-contrast CT scan of the brain was performed from the skull base to the high parietal region. One of the following dose reduction techniques was utilized for this exam: Automated exposure control, adjustment of the mA and/or kV according to patient size, and use of iterative reconstruction. FINDINGS: Brain Parenchyma: Normal attenuation of the cerebral hemispheres, cerebellum, and brainstem. No evidence of acute infarct, hemorrhage, or mass effect. No abnormal areas of hypo- or hyperattenuation. Age-proportionate involutional changes are seen as evident by the prominence of intra-and extra-axial CSF spaces. A few areas of hypodensities were noted in the bilateral periventricular region and subcortical deep white matter representing microvascular ischemic changes. Ventricular System: Ventricles are normal in size and configuration. No evidence of hydrocephalus or ventricular enlargement. Subarachnoid Spaces: Normal sulci and cisterns. No evidence of subarachnoid hemorrhage or extra-axial fluid collections. Cerebellum and Brainstem: Normal size and signal. No masses, lesions, or areas of abnormal signal. Orbits: Normal appearance of the globes, optic nerves, and extraocular muscles. No evidence of orbital masses or abnormal signals. Sinuses: Polypoidal mucosal thickening was noted in the bilateral maxillary sinuses. No evidence of sinusitis or mucosal thickening in rest of the sinuses. Mastoid Air Cells: Clear mastoid air cells. No evidence of mastoiditis. Skull: Normal skull morphology. IMPRESSION: 1. No definite acute osseous and soft tissue injury noted. 2. No evidence of cerebral infarct, intra parenchymal or intra ventricular hemorrhage seen. Early changes of acute ischemia are sometimes not visible on CT if there is a strong clinical suspicion MRI with DWI/ADC maps is suggested for further evaluation. 3. Age proportionate changes with few microvascular ischemic changes are noted. [facility] ER was called at [phone] at 8:15 AM ROPE TOW OPERATOR, 04/23/2024, and nurse Michelle was informed about negative stroke results. Electronically Signed by: Zoey Vázquez MD. (04/23/2024 09:17:02 EST)
[2024-04-23 09:23] VITALS: O2SAT 99
[2024-04-23 09:23] LABS: Appearance Clear (Clear); Bacteria None Seen /HPF (None Seen); Bilirubin Negative (Negative); Blood Negative (Negative); Epithelial Cells None Seen /HPF (None Seen); Glucose, Urine Negative (Negative); Ketones Trace (Negative); Leukocyte Esterase Trace (Negative); Nitrite Negative (Negative); Ph 6.5 (4.6-8.0); Protein,Urine Dip 30 (Negative); Specific Gravity 1.025 (1.005-1.030); WBC 0-2 /HPF (0-5)
[2024-04-23 09:25] LABS: ALBUMIN 4.2 g/dL (3.5-5.0); BILIRUBIN,TOTAL 1.1 mg/dL (0.2-1.3); Calcium 9.2 mg/dL (8.4-10.2); Creatinine 1 1.06 mg/dL (0.66-1.25); EST GLOMERULAR FILTRATION RATE 75.5 ML/MIN; Potassium 4.8 mmol/L (3.5-5.1); Total Protein 6.3 g/dL (6.3-8.2)
[2024-04-23] MEDS ORDERED: ROCEPHIN 1 GM / 100 ML NaCl 1 GM/100 ML IVPB IV ONE (09:40)
[2024-04-23] MEDS: ROCEPHIN 1 GM / 100 ML NaCl 1 GM/100 ML IVPB IV ONE (09:43)
[2024-04-23 10:08] VITALS: BP 109/72; PULSE 84; RESP 34
[2024-04-23 13:33] LABS: Slide Review 1 YES
--- NOTE | 2024-04-23 18:05 | XRAY ---
Indication: Pulmonary fibrosis. Comparison: January 22, 2024 PA/lateral chest again demonstrates COPD with bibasilar subsegmental atelectasis/scarring and right midlung calcified granuloma. No focal infiltrate, consolidation, or large effusion. Heart not enlarged again with tortuous descending aorta. Bony thorax intact again with osteopenia and degenerative changes. Impression: Continued nonacute chest with chronic features.
== END 2024-04-23 10:08 | disposition home or self-care (01) ==
LOC: ED 07:59
DX: K52.9 Noninfective gastroenteritis and colitis, unspecified (principal); S01.312A Laceration without foreign body of left ear, initial encounter; S00.12XA Contusion of left eyelid and periocular area, initial encounter; W18.30XA Fall on same level, unspecified, initial encounter; Z79.899 Other long term (current) drug therapy; Z79.01 Long term (current) use of anticoagulants
CPT/HCPCS: 36415; 70450; 71046; 80053; 81001; 84484; 85025; 93005; 93041; 96374; 99284; 99285; J0696

== ENCOUNTER 2024-07-06 22:45 | Emergency (ER) | payer MEDICARE ==
[2024-07-06 23:22] VITALS: TEMP 97.8
[2024-07-06] MEDS ORDERED: Sodium Chloride 0.9% 1000 ML 1,000 ML ONE (23:54)
[2024-07-06] MEDS: Sodium Chloride 0.9% 1000 ML 1,000 ML IV SCH (23:57)
--- NOTE | 2024-07-06 23:59 | ERPHSYRPT ---
- History of Present Illness Time Seen by Provider: 07/06/24 23:45 Source: patient Exam Limitations: clinical condition Patient Subjective Stated Complaint: pt states that he had surgery on Sunday. pt states he is SOB and abd pain Triage Nursing Assessment: pt ambulated into the er with walker; pt is axo x4; c/o sob; pt states 8/10 pain to left upper abd; no respiratory distress present; pt states SOB; clear lung sounds in all lobes; clear apical heart tone; abd round distended, tender to LUQ; active bowel sounds in all quads; pt denies N/ V/D; last bm 07/06/24; skin PDW; Timing/Duration: today Severity: mild Associated Symptoms: denies symptoms Allergies/Adverse Reactions: ketorolac [From Toradol] Allergy (Verified 07/06/24 22:57) Home Medications: Levothyroxine Sodium 50 Mcg [Synthroid 50 Mcg] 25 mcg PO DAILY 02/07/22 [History] Upadacitinib [Rinvoq] 15 mg PO DAILY 03/03/23 [History] Omeprazole 20 mg PO DAILY 06/23/23 [History] Rivaroxaban [Xarelto] 15 mg PO HS 06/23/23 [History] Nintedanib Esylate [Ofev] 150 mg PO BID 04/23/24 [History] Acetaminophen 500 mg [Tylenol Extra Strength 500 mg] 1,000 mg PO Q8HPRN PRN 07/06/24 [History] Atorvastatin Calcium 20 mg PO DAILY 07/06/24 [History] Celecoxib 200 mg PO BID 07/06/24 [History] Gabapentin 100 mg PO TID 07/06/24 [History] Ondansetron ODT 4 MG [Zofran Odt 4 mg] 4 mg PO Q6HPRN PRN 07/06/24 [History] Oxycodone HCl [Oxycodone HCl ER] 10 mg PO Q4HPRN PRN 07/06/24 [History] Sennosides/Docusate Sodium [Docusate Sodium-Sennosides Tab] 1 each PO BID 07/06/24 [History] cefaDROXiL [Cefadroxil] 500 mg PO BID 07/06/24 [History] Hx Tetanus, Diphtheria Vaccination/Date Given: No (unk) Hx Influenza Vaccination/Date Given: No Hx Pneumococcal Vaccination/Date Given: No Travel Risk - International Travel Have you traveled outside of the country in past 3 weeks: No - Emerging Infectious Disease Are you exhibiting symptoms associated with any current EIDs: Yes Symptoms: Abdominal Pain, Shortness of Breath - Review of Systems Constitutional: No Symptoms Eyes: No Symptoms Ears, Nose, & Throat: No Symptoms Respiratory: No Symptoms, Other (left sided chest wall pain) Cardiac: No Symptoms Abdominal/Gastrointestinal: Abdominal Pain Genitourinary Symptoms: No Symptoms Musculoskeletal: No Symptoms Skin: No Symptoms Neurological: No Symptoms Psychological: No Symptoms Endocrine: No Symptoms Hematologic/Lymphatic: No Symptoms Immunological/Allergic: No Symptoms All Other Systems: Reviewed and Negative - Past Medical History Pertinent Past Medical History: Yes Neurological History: No Pertinent History ENT History: No Pertinent History Cardiac History: No Pertinent History Respiratory History: Pulmonary Embolism Endocrine Medical History: Hyperthyroidism Musculoskeletal History: No Pertinent History GI Medical History: No Pertinent History History: No Pertinent History Psycho-Social History: No Pertinent History Male Reproductive Disorders: No Pertinent History Other Medical History: ezcema, CA lower lip,ca left ear - Past Surgical History Past Surgical History: Yes Neuro Surgical History: No Pertinent History Cardiac: No Pertinent History Respiratory: No Pertinent History Gastrointestinal: No Pertinent History Genitourinary: No Pertinent History Musculoskeletal: No Pertinent History, Orthopedic Surgery Male Surgical History: No Pertinent History Other Surgical History: T&A as a child,rt foot, colonoscopy, nose surgery Significant Family History: no pertinent family hx - Social History Smoking Status: Never smoker Exposure to second hand smoke: No Drug Use: none - Social Determinants of Health Will the patient participate in the screening: Yes Do you worry about a steady place to live?: No Do you have any problems with any of the following?: No known problems In the past 12 months,have you had to go without utilities?: No Transportation Issues: No Has anyone in your support network made you feel unsafe?: No Have you or anyone in your house had to go w/o enough food: No - Nursing Vital Signs Nursing Vital Signs: Initial Vital Signs Temperature 97.8 F 07/06/24 22:57 Pulse Rate 74 07/06/24 22:57 Respiratory Rate 22 07/06/24 22:57 Blood Pressure 106/67 07/06/24 22:57 O2 Sat by Pulse Oximetry 99 07/06/24 22:57 Pain Scale Pain Intensity 3 - Physical Exam General Appearance: no apparent distress Eye Exam: PERRL/EOMI Ears, Nose, Throat Exam: normal ENT inspection Respiratory Exam: normal breath sounds, chest tenderness (patient has left sided chest wall tenderness) Cardiovascular Exam: regular rate/rhythm Extremity Exam: other (the knee appears to be healing well postop ) SpO2: 98 Ordered Tests: Active Orders 24 hr Category Date Time Status ABDOMEN AND PELVIS W CONTRAST [CT] Stat Exams 07/06/24 23:52 Completed CHEST WITH CONTRAST [CT] Stat Exams 07/06/24 23:53 Completed AMYLASE Stat Lab 07/06/24 23:59 Completed CBC W DIFF Stat Lab 07/06/24 23:59 Completed CMP Stat Lab 07/06/24 23:59 Completed LIPASE Stat Lab 07/06/24 23:59 Completed UA W/RFX UR CULTURE Stat Lab 07/07/24 01:41 Completed Medication Summary Generic Name Dose Route Start Last Admin Trade Name Freq PRN Reason Stop Dose Admin Sodium Chloride 1,000 mls @ 100 mls/hr 07/06/24 23:45 07/06/24 23:57 Sodium Chloride 0.9% 1000 Ml IV 08/05/24 23:44 100 mls/hr .Q10H MARCELINO Administration Lab/Rad Data: Laboratory Result Diagrams 07/06/24 23:59 07/06/24 23:59 Laboratory Results 07/07/24 07/06/24 07/06/24 Range/Units 01:41 23:59 23:59 WBC 7.6 (4.23-9.07) x10^3/uL RBC 4.44 L (4.63-6.08) x10^6/uL Hgb 14.7 (13.7-17.5) g/dL Hct 42.9 (40.1-51.0) % MCV 96.6 H (79.0-92.2) fL MCH 33.1 H (25.7-32.2) pg MCHC 34.3 (32.3-36.5) g/dL RDW 14.8 H (11.6-14.4) % Plt Count 318 (163-337) x10^3/uL MPV 9.9 (9.4-12.4) fL Gran % 81.2 H (34.0-67.9) % Immature Gran % (Auto) 0.3 (0.001-0.429) % Nucleat RBC Rel Count 0.0 (0.00-0.2) % Eos # (Auto) 0.08 (0.04-0.54) x10^3/uL Immature Gran # (Auto) 0.02 (0.001-0.031) x10^3u/L Absolute Lymphs (auto) 0.81 L (1.32-3.57) x10^3/uL Absolute Monos (auto) 0.50 (0.30-0.82) x10^3/uL Absolute Nucleated RBC 0.00 (0.00-0.012) x10^3u/L Lymphocytes % 10.6 L (21.8-53.1) % Monocytes % 6.5 (5.3-12.2) % Eosinophils % 1.0 (0.8-7.0) % Basophils % 0.4 (0.2-1.2) % Absolute Granulocytes 6.20 H (1.78-5.38) x10^3/uL Basophils # 0.03 (0.01-0.08) x10^3/uL Sodium 138 (135-145) mmol/L Potassium 3.9 (3.5-5.1) mmol/L Chloride 103 (98-107) mmol/L Carbon Dioxide 21 L (22-30) mmol/L Anion Gap 18.1 H (5-15) MEQ/L BUN 23 H (9-20) mg/dL Creatinine 0.99 (0.66-1.25) mg/dL Estimated GFR 82.0 ML/MIN Glucose 103 (74-106) mg/dL Calcium 9.6 (8.4-10.2) mg/dL Total Bilirubin 1.00 (0.2-1.3) mg/dL AST 38 (17-59) U/L ALT 38 (0-50) U/L Alkaline Phosphatase 61 (38-126) U/L Serum Total Protein 7.3 (6.3-8.2) g/dL Albumin 4.5 (3.5-5.0) g/dL Amylase 47 (30-110) U/L Lipase 26 (23-300) U/L Urine Color Yellow (Yellow) Urine Appearance Clear (Clear) Urine pH 5.5 (4.6-8.0) Ur Specific [place] >=1.030 A (1.005-1.030) Urine Protein Trace A (Negative) Urine Glucose (UA) Negative (Negative) mg/dL Urine Ketones Trace A (Negative) Urine Blood Negative (Negative) Urine Nitrite Negative (Negative) Urine Bilirubin Negative (Negative) Urine Urobilinogen 1.0 A (0.2) mg/dL Ur Leukocyte Esterase Negative (Negative) U Hyaline Cast (Auto) NONE SEEN (0-2) /LPF Urine Microscopic RBC 0-2 (0-5) /HPF Urine Microscopic WBC 0-2 (0-5) /HPF Ur Epithelial Cells None Seen (None Seen) /HPF Urine Bacteria None Seen (None Seen) /HPF Urine Culture Reflexed NO (NO) - Progress Progress Note: Patient was seen evaluated for left-sided chest wall pain and left upper quadrant abdominal pain that has been getting worse since this evening at 430 he is status post knee surgery he called his orthopedic surgeon last him to come to the emergency department to be evaluated he states that he feels a bulge to the left lower lateral chest wall and to the left upper quadrant. ct pe study and abdomen pelvis was ordered as the patient is post op and has a history of pe 07/06/24 23:57 07/07/24 03:33 ct chest reveals IMPRESSION: 1. Stable, subpleural reticular and ground-glass opacities and are seen in both lungs, predominantly in both lower lobes and left lower lung lobe cyst. These could represent interstitial lung disease or sequala of previous inflammatory processes. 2. There are small calcified nodules, likely granulomas, at the posterior segment of the right upper lobe. -stable. 3. No obvious evidence of central pulmonary embolism. ct abdomen and pelvis reveals IMPRESSION: 1. A hypodense nodule at segment IVB of the left liver lobe. Consider cyst versus hemangioma. -stable. 2. Renal cortical cysts, bilateral. Bosniak 2 in the right and Bosniak 1 in the left.-stable. 3. Mild prostatomegaly-stable. Patient was updated with the results he was informed of the need for IV antibiotics for treatment of a presumptive early pneumonia he will be discharged home with antibiotics he will be given 1 dose of Rocephin and Zithromax here 07/07/24 03:47 Medical Desision Making - Discussion of managment Agreed on:: need for follow-up Will see patient: In office - Departure Departure Disposition: Home Clinical Impression: Pleurodynia, Pneumonia Condition: Stable Critical Care Time: No Referrals: ZECHARIAH WILDER [Primary Care Provider] - Follow up/PCP as directed Prescriptions: Azithromycin 250 mg [Zithromax 250 MG TABLET] 250 mg PO ZPACK #6 tablet
[2024-07-07 00:22] LABS: ALBUMIN 4.5 g/dL (3.5-5.0); ANION GAP 18.1 MEQ/L (5-15); Calcium 9.6 mg/dL (8.4-10.2); Creatinine 1 0.99 mg/dL (0.66-1.25); Potassium 3.9 mmol/L (3.5-5.1); Total Protein 7.3 g/dL (6.3-8.2)
[2024-07-07 00:25] LABS: BASOPHIL % 0.4 % (0.2-1.2); Basophil (Absolute #) 0.03 x10^3/uL (0.01-0.08); Eosinophil (Absolute #) 0.08 x10^3/uL (0.04-0.54); Hematocrit 42.9 % (40.1-51.0); Hemoglobin 14.7 g/dL (13.7-17.5); IMMATURE GRAN # 0.02 x10^3u/L (0.001-0.031); IMMATURE GRAN % 0.3 % (0.001-0.429); Lymphocyte (Absolute #) 0.81 x10^3/uL (1.32-3.57); Lymphocytes % 10.6 % (21.8-53.1); Mean Cell Volume 96.6 fL (79.0-92.2); Mean Corpuscular Hemoglobin 33.1 pg (25.7-32.2); Mean Corpuscular Hgb Concent. 34.3 g/dL (32.3-36.5); Mean Platelet Volume 9.9 fL (9.4-12.4); Monocytes % 6.5 % (5.3-12.2); Neutrophil % 81.2 % (34.0-67.9); Platelet Count 318 x10^3/uL (163-337); Red Blood Count 4.44 x10^6/uL (4.63-6.08); Red Cell Distribution Width 14.8 % (11.6-14.4); White Blood Count 7.6 x10^3/uL (4.23-9.07)
[2024-07-07 02:26] LABS: Appearance Clear (Clear); Bacteria None Seen /HPF (None Seen); Bilirubin Negative (Negative); Blood Negative (Negative); Epithelial Cells None Seen /HPF (None Seen); Glucose, Urine Negative (Negative); Hyaline Casts NONE SEEN /LPF (0-2); Ketones Trace (Negative); Leukocyte Esterase Negative (Negative); Nitrite Negative (Negative); Ph 5.5 (4.6-8.0); Protein,Urine Dip Trace (Negative); RBC 0-2 /HPF (0-5); Specific Gravity >=1.030 (1.005-1.030); WBC 0-2 /HPF (0-5)
--- NOTE | 2024-07-07 03:10 | XRAY ---
CLINICAL HISTORY: abdominal pain COMPARISON: 03 MAR 2023 TECHNIQUE: Contiguous axial images were obtained from the level of the diaphragm to the pubic symphysis with intravenous contrast. Coronal and sagittal reconstructions were likewise performed and indicated to increase the sensitivity for detecting clinically relevant pathology. If IV contrast material had not been administered, the likelihood of detecting abnormalities relevant to the patient's condition would have been substantially decreased. CT scan was performed according to ALARA (as low as reasonable achievable). FINDINGS: The liver is normal in size measuring 14.1 cm craniocaudally. There is a 1.3 cm hypodense lesion at segment IVB of the left liver lobe. The portal vein, intrahepatic biliary radicals, and the bile ducts are normal. The spleen, pancreas, and adrenal glands are unremarkable. The kidneys are normal in size and shape. A hyperdense exophytic nodule measuring 8.4 mm is seen at the mid-cortex of the right kidney.-stable. There is a 7.1 mm simple cortical cyst at the left inferior cortex.-stable. No mass, calculi, or hydronephrosis. The gallbladder is distended and shows no definite stones. There is no evidence of wall thickening/ pericholecystic collection. The ascending colon, the transverse colon, and the descending colon. There is no evidence of significant enlargement of the mesenteric or retroperitoneal lymph nodes. Atherosclerotic aorta and some of its branches. Bilateral small fat-filled inguinal hernias are noted. Pelvis: The urinary bladder is unremarkable. The prostate gland is slightly enlarged measuring 3.4 x 5.5 x 3.6 cm (approx. 35 g). The pelvic vasculature is unremarkable. No evidence of pelvic lymphadenopathy. Degenerative osseous changes are seen. No definite evidence of acute fractures. IMPRESSION: 1. A hypodense nodule at segment IVB of the left liver lobe. Consider cyst versus hemangioma. -stable. 2. Renal cortical cysts, bilateral. Bosniak 2 in the right and Bosniak 1 in the left.-stable. 3. Mild prostatomegaly-stable. 4. Rest of the findings as detailed above Electronically Signed by: Vimal Cabral MD. (07/07/2024 03:07:00 EDT)
--- NOTE | 2024-07-07 03:36 | XRAY ---
CLINICAL HISTORY: sob r/o pe COMPARISON: 23 jun 2023. TECHNIQUE: Contiguous axial images were obtained from the neck base through the upper abdomen following intravenous administration of contrast material. If IV contrast material had not been administered, the likelihood of detecting abnormalities relevant to the patient's condition would have been substantially decreased. In addition, sagittal and coronal reconstructions were performed. CT scan was performed according to ALARA (as low as reasonable achievable). FINDINGS: Again, subpleural reticular and ground-glass opacities and are seen in both lungs, predominantly in both lower lobes and left lower lung lobe cyst. These could represent interstitial lung disease or sequala of previous inflammatory processes. There are small calcified nodules, likely granulomas, at the posterior segment of the right upper lobe. The central airways are patent. There are no pleural effusions. No pneumothorax is seen. No axillary, hilar, or mediastinal adenopathy is identified. The visualized thyroid is unremarkable. The heart, aorta, and pulmonary arteries are of normal size and configuration. No pericardial effusion is identified. Imaged portions of the upper abdomen are unremarkable. No aggressive appearing osseous lesions are identified. IMPRESSION: 1. Stable, subpleural reticular and ground-glass opacities and are seen in both lungs, predominantly in both lower lobes and left lower lung lobe cyst. These could represent interstitial lung disease or sequala of previous inflammatory processes. 2. There are small calcified nodules, likely granulomas, at the posterior segment of the right upper lobe. -stable. 3. No obvious evidence of central pulmonary embolism. Electronically Signed by: Vimal Cabral MD. (07/07/2024 03:32:11 EDT)
[2024-07-07] MEDS ORDERED: Zithromax 250 MG TABLET ONE (03:57)
[2024-07-07] MEDS ORDERED: ROCEPHIN 1 GM / 100 ML NaCl 1 GM/100 ML IVPB IV ONE (03:57)
[2024-07-07] MEDS: Zithromax 250 MG TABLET PO ONE (03:58)
[2024-07-07] MEDS: ROCEPHIN 1 GM / 100 ML NaCl 1 GM/100 ML IVPB IV ONE (03:59)
[2024-07-07 04:32] VITALS: BP 108/76; PULSE 68; RESP 18; O2SAT 97
== END 2024-07-07 04:37 | disposition home or self-care (01) ==
LOC: ED 22:45
DX: R07.81 Pleurodynia (principal); J18.9 Pneumonia, unspecified organism; R10.12 Left upper quadrant pain; Z79.01 Long term (current) use of anticoagulants; Z79.891 Long term (current) use of opiate analgesic; Z79.899 Other long term (current) drug therapy
CPT/HCPCS: 36415; 71260; 74177; 80053; 81001; 82150; 83690; 85025; 96365; 96374; 99284; 99285; J0696; A9270-GY